=== PATIENT | female | born 1940 | race African-American/Black ===

== ENCOUNTER 2018-07-14 14:09 | Inpatient (IN) | payer MEDICARE, MEDICAID ==
[2018-07-14] MEDS ORDERED: ACETAMINOPHEN 325 MG TABLET PO ONE (16:11)
--- NOTE | 2018-07-14 16:15 | ER Document Report ---
ED Extremity Problem, Lower - General Chief Complaint: Knee Pain Stated Complaint: KNEE PAIN Time Seen by Provider: 07/14/18 16:01 Mode of Arrival: Wheelchair Information source: Patient, Relative - Daughter Notes: 78-year-old female presented to ED for complaint of left hip pain. Family states she was stating that her knee hurt but when I examined the patient only complained of her left hip hurting. TRAVEL OUTSIDE OF THE [place] IN LAST 30 DAYS: No - HPI Patient complains to provider of: Injury, Pain Location: Hip, Thigh Occurred: This morning Where: Home, Indoors Onset/Duration: Gradual Quality of pain: Sharp Severity: Moderate Pain Level: 4 Context: Fell Recent injury: Yes Associated symptoms: Painful ambulation Exacerbated by: Hanging down, Movement, Walking - Related Data Allergies/Adverse Reactions: latex Adverse Reaction (Verified 07/14/18 14:10) Past Medical History - General Information source: Patient - Social History Smoking Status: Former Smoker Cigarette use (# per day): No Chew tobacco use (# tins/day): No Smoking Education Provided: No Frequency of alcohol use: Occasional - Daughter states she had quite a bit to drink last night due to a family occasion usually drinks every couple months Drug Abuse: None Lives with: Family Family History: Reviewed & Not Pertinent Patient has suicidal ideation: No Patient has homicidal ideation: No - Past Medical History Cardiac Medical History: Reports: Hx Coronary Artery Disease, Hx Heart Attack, Hx Hypercholesterolemia, Hx Hypertension Pulmonary Medical History: Reports: Hx Bronchitis EENT Medical History: Reports: None Neurological Medical History: Reports: Other - Daughter states she has some dementia Endocrine Medical History: Reports: Hx Diabetes Mellitus Type 2 Renal/ Medical History: Reports: None Malignancy Medical History: Reports: Hx Lung Cancer - Left upper lobe GI Medical History: Reports: None Musculoskeletal Medical History: Reports Hx Arthritis, Reports Hx Musculoskeletal Trauma Skin Medical History: Reports None Psychiatric Medical History: Reports: Hx Dementia Traumatic Medical History: Reports: None Infectious Medical History: Reports: None Past Surgical History: Reports: Hx Carotid Endarterectomy - Left, Hx Orthopedic Surgery - Rotator cuff surgery to the right, Other - Immunizations Immunizations up to date: Yes Review of Systems - Review of Systems Constitutional: No symptoms reported EENT: No symptoms reported Cardiovascular: No symptoms reported Respiratory: No symptoms reported Gastrointestinal: No symptoms reported Genitourinary: No symptoms reported Female Genitourinary: No symptoms reported Musculoskeletal: Joint pain. denies: Joint swelling - Left hip pain, Muscle pain, Muscle stiffness, Neck pain Skin: No symptoms reported Hematologic/Lymphatic: No symptoms reported Neurological/Psychological: No symptoms reported -: Yes All other systems reviewed and negative Physical Exam - Vital signs Vitals: Temp Pulse Resp BP Pulse Ox 97.7 F 85 14 183/54 H 91 L 07/14/18 14:14 07/14/18 14:14 07/14/18 14:14 07/14/18 14:14 07/14/18 14:14 Interpretation: Normal - General General appearance: Appears well, Alert - HEENT Head: Normocephalic, Atraumatic Eyes: Normal Pupils: PERRL - Respiratory Respiratory status: No respiratory distress Chest status: Nontender Breath sounds: Normal Chest palpation: Normal - Cardiovascular Rhythm: Regular Heart sounds: Normal auscultation Murmur: No - Abdominal Inspection: Normal Distension: No distension Bowel sounds: Normal Tenderness: Nontender Organomegaly: No organomegaly - Back Back: Normal, Nontender - Extremities General upper extremity: Normal inspection, Nontender, Normal color, Normal ROM , Normal temperature General lower extremity: Normal inspection, Normal color, Normal temperature. No: Donald's sign Hip: Tender, Deformity - External rotation, Pain with ROM, Unable to bear weight. No: Abrasion, Dislocation, Ecchymosis, Instability, Laceration Thigh: Tender Knee: Normal, Nontender, Pain with ROM, Patellar tendon intact. No: Tender, Abrasion, Deformity, Dislocation, Drawer's test instability, Ecchymosis, Instability, Joint effusion, Laceration, Laxity with valgus stress, Laxity with varus stress, Popliteal fossa tender, Tender joint line, Unable to bear weight - Neurological Neuro grossly intact: Yes Cognition: Normal Orientation: AAOx4 Ariana Coma Scale Eye Opening: Spontaneous [place] Coma Scale Verbal: Oriented [place] Coma Scale Motor: Obeys Commands Ariana Coma Scale Total: 15 Speech: Normal Motor strength normal: LUE, RUE, LLE, RLE Sensory: Normal - Psychological Associated symptoms: Normal affect, Normal mood - Skin Skin Temperature: Warm Skin Moisture: Dry Skin Color: Normal Course - Re-evaluation Re-evalutation: 07/14/18 17:08 Consulted evaluated with the fractured left hip results of the x-ray. He stated the patient would need to be admitted to hospitalist as she has an extensive history. Patient is from [place] does not live in the area and does not have a local primary care doctor. Dr. Suzie mosley was consulted. He stated to call Dr. Field for this admission. Dr. Field was consulted he stated he would need all the labs EKG chest x-ray before he could admit the patient. Labs x-ray EKG and urine were ordered. - Vital Signs Vital signs: Temp Pulse Resp BP Pulse Ox 97.8 F 71 16 142/62 H 97 07/15/18 00:21 07/15/18 00:21 07/15/18 00:21 07/15/18 00:21 07/15/18 00:21 - Laboratory Result Diagrams: 07/14/18 17:30 07/14/18 17:30 Laboratory results interpreted by me: 07/14/18 07/14/18 17:30 17:30 WBC 15.7 H RBC 3.56 L Hgb 10.9 L Hct 32.4 L Seg Neutrophils % 87.3 H Lymphocytes % 8.0 L Absolute Neutrophils 13.7 H Sodium 134.5 L Chloride 92 L Creatinine 1.26 H Est GFR ( Amer) 50 L Est GFR (Non-Af Amer) 41 L Glucose 186 H AST 43 H Creatine Kinase 143 H Total Protein 9.2 H - Consults ariana Time consulted: 16:45 Reason for consultation: 07/14/18 17:12 left hip fracture from fall Consulted provider: other Suzie Flores consulted: 16:46 Reason for consultation: 07/14/18 17:13 Admission for a left hip fracture. He stated that I would need to consult Dr. Field who is the next person to accept an admission. Dr Field Time consulted: 16:47 Reason for consultation: 07/14/18 17:14 Admission for a left hip fracture. Dr. Ariana Morel stated he would consult on this patient. Dr. Field stated that he needs labs x-ray EKG and urine before he can accept this admission. Discharge - Discharge Clinical Impression: Closed left hip fracture Disposition: ADMITTED INPATIENT Admitting Provider: Hospitalist - tianna Unit Admitted: [facility]
--- NOTE | 2018-07-14 16:47 | RADIOLOGY REPORT (SQ) ---
EXAM DESCRIPTION: HIP LEFT AP/LATERAL COMPLETED DATE/TIME: 07/14/2018 4:32 pm REASON FOR STUDY: pain and fall COMPARISON: None. NUMBER OF VIEWS: Two views. TECHNIQUE: AP pelvis and additional frog-leg view of the left hip. LIMITATIONS: None. FINDINGS: MINERALIZATION: Osteopenia. LEFT HIP: No dislocation. Left femoral neck fracture with approximately 2.4 cm of impaction and 1 cm lateral displacement. . RIGHT HIP: No fracture or dislocation. No worrisome bone lesions. PUBIS AND ISCHIUM: No fracture. PELVIS: No fracture. SACRUM: No fracture or dislocation. No worrisome bone lesions. LOWER LUMBAR SPINE: No fracture or dislocation. No worrisome bone lesions. No significant disc disea se. SOFT TISSUES: No findings. OTHER: No other significant finding. IMPRESSION: Left femoral neck fracture with approximately 2.4 cm of impaction and 1 cm lateral dis placement. TECHNICAL DOCUMENTATION: JOB ID: [id number] [place]-72 2010 [employer]- All Rights Reserved Reading location - IP/workstation name: [email or web address]
[2018-07-14 18:03] LABS: ABSOLUTE BASOPHILS # (AUTO) 0.1 10^3/uL (0.0-0.2); ABSOLUTE LYMPHOCYTES (AUTO) 1.3 10^3/uL (0.5-4.7); ABSOLUTE MONOCYTES (AUTO) 0.6 10^3/uL (0.1-1.4); ABSOLUTE NEUT (AUTO) 13.7 10^3/uL (1.7-8.2); BASOPHILS % (AUTO) 0.6 % (0-2); HEMATOCRIT 32.4 % (36.0-47.0); HEMOGLOBIN 10.9 g/dL (12.0-15.5); MEAN CORPUSCULAR HEMOGLOBIN 30.7 pg (27.0-33.4); MEAN CORPUSCULAR HGB CONC 33.6 g/dL (32.0-36.0); MEAN CORPUSCULAR VOLUME 91 fl (80-97); MONOCYTES % (AUTO) 4.1 % (3-13); PLATELET COUNT 222 10^3/uL (150-450); RED BLOOD COUNT 3.56 10^6/uL (3.72-5.28); RED CELL DISTRIBUTION WIDTH 13.8 % (11.5-14.0); SEGMENTED NEUTROPHILS % (AUTO) 87.3 % (42-78); TOTAL CELLS COUNTED % (AUTO) 100 %; WHITE BLOOD COUNT 15.7 10^3/uL (4.0-10.5)
[2018-07-14] MEDS ORDERED: ONDANSETRON HCL INJ/PF 4 MG/2 ML SDV IV PRN (18:07)
[2018-07-14] MEDS ORDERED: IPRATROPIUM/ALBUTEROL 0.5-2.5 MG/3 ML AMPUL NEB PRN (18:07)
[2018-07-14 18:09] LABS: INTERNATIONAL RATION (INR) 0.95; PROTHROMBIN TIME 13.2 SEC (11.4-15.4)
[2018-07-14 18:10] LABS: PARTIAL THROMBOPLASTIN TIME 35.8 SEC (23.5-35.8)
[2018-07-14] MEDS ORDERED: VALSARTAN 80 MG TABLET PO ONE (18:19)
[2018-07-14] MEDS ORDERED: AMLODIPINE BESYLATE 10 MG TABLET PO ONE (18:19)
[2018-07-14] MEDS ORDERED: INSULIN DETEMIR 100 UNIT/ML 3 ML PEN SUBCUT ONE ×3 (18:22→23:30)
[2018-07-14] MEDS ORDERED: GLUCAGON,HUMAN RECOMB 1 MG INJ IM PRN (18:22)
[2018-07-14] MEDS ORDERED: DEXTROSE 50%-WATER 25 GM/50 ML DISP.SYRIN IV PRN ×2 (18:22)
[2018-07-14] MEDS ORDERED: DEXTROSE 40% GEL 15 GM TUBE PO PRN ×2 (18:22)
[2018-07-14] MEDS ORDERED: MORPHINE SULFATE 10 MG/ML INJ IV PRN (18:25)
[2018-07-14 18:26] LABS: ALANINE AMINOTRANSFERASE 21 U/L (9-52); ALBUMIN 4.7 g/dL (3.5-5.0); ALKALINE PHOSPHATASE 78 U/L (38-126); ANION GAP 17 (5-19); ASPARTATE AMINO TRANSFERASE 43 U/L (14-36); BILIRUBIN,DIRECT 0.4 mg/dL (0.0-0.4); BILIRUBIN,TOTAL 0.8 mg/dL (0.2-1.3); BLOOD UREA NITROGEN 20 mg/dL (7-20); CALCIUM 9.6 mg/dL (8.4-10.2); CARBON DIOXIDE 26 mmol/L (22-30); CHLORIDE 92 mmol/L (98-107); CREATINE KINASE 143 U/L (30-135); GLUCOSE 186 mg/dL (75-110); POTASSIUM 3.8 mmol/L (3.6-5.0); SODIUM 134.5 mmol/L (137-145); TOTAL PROTEIN 9.2 g/dL (6.3-8.2)
[2018-07-14 18:46] LABS: APPEARANCE,URINE CLEAR; BILIRUBIN,URINE NEGATIVE (NEGATIVE); COLOR,URINE STRAW; GLUCOSE, URINE 50 mg/dL (NEGATIVE); KETONES,URINE NEGATIVE (NEGATIVE); LEUKOCYTE ESTERASE,URINE NEGATIVE (NEGATIVE); NITRITE,URINE NEGATIVE (NEGATIVE); PROTEIN,URINE 100 mg/dL (NEGATIVE); URINE SPECIFIC GRAVITY 1.009; UROBILINOGEN,URINE NEGATIVE mg/dL (<2.0)
--- NOTE | 2018-07-14 18:48 | PDOC H&P ---
History of Present Illness Admission Date/PCP: 07/14/2018 Patient complains of: Pain left hip History of Present Illness: SOFY BRYANT is a 78 year old female visiting from [place]. Patient got up to use the bathroom became entangled in her blanket according to the daughter who is present in the room and fell to the floor. They found her with the blanket wrapped around her feet she was complaining of pain in her left hip. Patient presented to the emergency room where an x-ray revealed she has an intertrochanteric fracture of the left hip. Dr. Ariana Morel was contacted and requested hospitalist admit the patient and consult him due to her numerous chronic medical problems. Patient has a complicated medical history she has coronary artery disease with a prior myocardial infarction in 2012. She underwent bypass at that time. She is followed closely by her steel die engraver in [place]. In 2013 she was diagnosed with lung cancer and had a lobe resection on the right followed by chemotherapy. She has been disease free ever since. In September 2017 patient had a CVA and was found to have a left carotid stenosis. She apparently had old strokes identified at that time and underwent an endarterectomy in November 2017. In September she was also noted to have a brief episode of paroxysmal atrial fibrillation. She was started on Eliquis and had been on it for over 6 months. In May her steel die engraver did a groundwater monitoring technician found no episodes of paroxysms of atrial fibrillation and discontinue the Eliquis and placed her on aspirin 81 mg. Patient suffers from hypertension diabetes hyperlipidemia she did have a seizure in September 2017 which they felt was secondary to her stroke she has been on Keppra since and has had no more reported seizures. She has not had any chest pain or cardiac complaints either prior to or after the fall. Her hemoglobin is 10.7 her white count is elevated at 15 other laboratory studies are pending at the time of this dictation. Patient's EKG shows a sinus rhythm with nonspecific T wave abnormalities in the lateral precordial and limb leads there is however no prior for comparison. Patient will be admitted to a medical monitored bed Past Medical History Cardiac Medical History: Reports: Atrial Fibrillation, Coronary Artery Disease, Myocardial Infarction, Hyperlipidema, Hypertension Pulmonary Medical History: Reports: Bronchitis EENT Medical History: Reports: None Neurological Medical History: Reports: Seizures Endocrine Medical History: Reports: Diabetes Mellitus Type 2 Renal/ Medical History: Reports: None Malignancy Medical History: Reports: Lung Cancer - Left upper lobe resected 2013 GI Medical History: Reports: None Musculoskeltal Medical History: Reports: Arthritis Skin Medical History: Reports: None Psychiatric Medical History: Reports: Dementia Traumatic Medical History: Reports: None Infectious Medical History: Reports: None Past Surgical History Past Surgical History: Reports: Carotid Endarterectomy - Left November 2017, Coronary Artery Bypass Graft - 2012, Orthopedic Surgery - Rotator cuff surgery to the left, Other - Right lobe lung resection for cancer 2013 Social History Lives with: Family Smoking Status: Former Smoker Cigars Per Day: 1 Last Time Smoked: September 2017 Frequency of Alcohol Use: None Drugs: None - Advance Directive Resuscitation Status: Full Code Family History Family History: DM - Father, Other - Valve replacement mother Parental Family History Reviewed: Yes Children Family History Reviewed: Yes Sibling(s) Family History Reviewed.: Yes Medication/Allergy Allergies/Adverse Reactions: latex Adverse Reaction (Verified 07/14/18 14:10) Review of Systems All systems: reviewed and no additional remarkable complaints except as stated - The pain in the left hip from the fracture Physical Exam Vital Signs: Temp Pulse Resp BP Pulse Ox 97.7 F 85 14 183/54 H 91 L 07/14/18 14:14 07/14/18 14:14 07/14/18 14:14 07/14/18 14:14 07/14/18 14:14 Intake & Output 07/13/18 07/14/18 07/15/18 06:59 06:59 06:59 Weight 48.2 kg General appearance: PRESENT: no acute distress, well-developed, well-nourished Eye exam: PRESENT: conjunctiva pink, EOMI, PERRLA. ABSENT: scleral icterus Mouth exam: PRESENT: moist, tongue midline Throat exam: ABSENT: post pharyngeal erythema, tonsillar erythema, tonsillar exudate, tonsillogmegaly, other Neck exam: PRESENT: carotid bruit - Left greater than right. ABSENT: JVD, lymphadenopathy, thyromegaly Respiratory exam: PRESENT: clear to auscultation arnold. ABSENT: rales, rhonchi, wheezes Cardiovascular exam: PRESENT: RRR, systolic murmur - 2/6 systolic murmur. ABSENT: diastolic murmur, rubs Pulses: ABSENT: normal dorsalis pedis pul - 1/4 bilaterally GI/Abdominal exam: PRESENT: normal bowel sounds, soft. ABSENT: distended, guarding, mass, organolmegaly, rebound, tenderness Extremities exam: PRESENT: full ROM - All joints except left hip, tenderness - Left hip. ABSENT: calf tenderness, clubbing, pedal edema Musculoskeletal exam: ABSENT: normal inspection - Left hip foreshorten and externally rotated left leg neurovascularly intact Neurological exam: PRESENT: alert, awake, oriented to person, oriented to place , oriented to time, oriented to situation, CN II-XII grossly intact. ABSENT: motor sensory deficit Psychiatric exam: PRESENT: other - Mild dementia Skin exam: PRESENT: dry, intact, warm. ABSENT: cyanosis, rash Results Laboratory Results: 07/14/18 17:30 07/14/18 17:30 WBC 15.7 H RBC 3.56 L Hgb 10.9 L Hct 32.4 L MCV 91 MCH 30.7 MCHC 33.6 RDW 13.8 Plt Count 222 Seg Neutrophils % 87.3 H Lymphocytes % 8.0 L Monocytes % 4.1 Eosinophils % 0.0 Basophils % 0.6 Absolute Neutrophils 13.7 H Absolute Lymphocytes 1.3 Absolute Monocytes 0.6 Absolute Eosinophils 0.0 Absolute Basophils 0.1 Impressions: Hip X-Ray 07/14/18 16:09 IMPRESSION: Left femoral neck fracture with approximately 2.4 cm of impaction and 1 cm lateral displacement. Assessment & Plan - Diagnosis (1) Closed intertrochanteric fracture of left hip Is this a current diagnosis for this admission?: Yes Plan: Admit patient to a monitored bed consult Dr. Ariana Morel regimen of the hip fracture. Subcutaneous heparin for DVT prophylaxis. Serial CBCs to monitor hemoglobin (2) CAD (coronary artery disease) Is this a current diagnosis for this admission?: Yes Plan: Patient bypass in 2002. She is followed by steel die engraver on a regular basis and recently had a groundwater monitoring technician which showed no paroxysms of atrial fibrillation. Daughter reports her Eliquis was discontinued in May she is on aspirin therapy. We will obtain an echocardiogram to assess her role overall ejection fraction prior to her surgery and to assess the cardiac murmur. If abnormalities detected will consult cardiology for preoperative medical evaluation. (3) Paroxysmal atrial fibrillation Is this a current diagnosis for this admission?: Yes Plan: Currently in sinus rhythm. [id number] score of 8 with a 6.7% annual risk of stroke. Will not initiate anticoagulation as her steel die engraver is more familiar with her case has decided to stop it. If patient develops any paroxysms of atrial fibrillation while in the hospital here will reinitiate Elimanuela and have her follow-up with her steel die engraver. Will initiate beta-carlos with metoprolol 12.5 mg every 12 hours titrate if blood pressure tolerates. (4) Diabetes mellitus type 2 in obese Is this a current diagnosis for this admission?: Yes Plan: Continue patient's Levemir reduced dose to 30 mg due to hospital diet and place on sliding scale check hemoglobin A1c (5) Seizure disorder Is this a current diagnosis for this admission?: Yes Plan: Continue Keppra (6) Hypertension Is this a current diagnosis for this admission?: Yes Plan: Continue amlodipine change Benicar to valsartan 80 and add metoprolol as patient has a history of paroxysmal atrial fibrillation and prior myocardial infarction beta-carlos is indicated. Titrate the beta-carlos if needed for blood pressure control. (7) Hyperlipidemia Is this a current diagnosis for this admission?: Yes Plan: Check lipid panel in the a.m. continue Lipitor 40 mg daily. (8) Cardiac murmur Is this a current diagnosis for this admission?: Yes Plan: Consistent with aortic valve assess with echocardiography (9) History of lung cancer Is this a current diagnosis for this admission?: Yes Plan: Status post right lung resection and chemotherapy 2013 no further workup planned - Time Time Spent: 50 to 70 Minutes Anticipated discharge: SNF - Inpatient Certification Based on my medical assessment, after consideration of the patient's comorbidities, presenting symptoms, or acuity I expect that the services needed warrant INPATIENT care.: Yes I certify that my determination is in accordance with my understanding of Medicare's requirements for reasonable and necessary INPATIENT services [42 CFR 412.3e].: Yes Medical Necessity: Need Close Monitoring Due to Risk of Patient Decompensation, Risk of Complication if Not Cared For in Hospital
--- NOTE | 2018-07-14 19:03 | RADIOLOGY REPORT (SQ) ---
EXAM DESCRIPTION: CHEST SINGLE VIEW COMPLETED DATE/TIME: 07/14/2018 6:34 pm REASON FOR STUDY: preop, fractured hip COMPARISON: None. EXAM PARAMETERS: NUMBER OF VIEWS: One view. TECHNIQUE: Single frontal radiographic view of the chest acquired. RADIATION DOSE: NA LIMITATIONS: None. FINDINGS: LUNGS AND PLEURA: No pneumothorax. Small pleural effusion versus Chronic scarring in the right lung base. Emphysema and chronic interstitial changes. No consolidation. MEDIASTINUM AND HILAR STRUCTURES: Age-appropriate contour. HEART AND VASCULAR STRUCTURES: Heart normal in size. Normal vasculature. BONES: No acute findings. HARDWARE: CABG. OTHER: No other significant finding. IMPRESSION: No pneumothorax. Small pleural effusion versus Chronic scarring in the right lung base. Emphysema and chronic interstitial changes. No consolidation. TECHNICAL DOCUMENTATION: JOB ID: [id number] [place]-72 2010 [employer]- All Rights Reserved Reading location - IP/workstation name: [email or web address]
[2018-07-14] MEDS: METOPROLOL TARTRATE 25 MG TABLET PO SCH ×2 (20:29→22:44)
[2018-07-14] MEDS: RINGERS SOLUTION,LACTATED 1,000 ML IV PRN (20:41)
--- NOTE | 2018-07-14 20:43 | PDOC CONSULTATION ---
Consultation Consult Date: 07/14/18 Attending physician:: CONNOR ALBARRAN Consult reason:: Preop cardiovascular examination History of Present Illness Admission Date/PCP: 07/14/18 18:07 Patient complains of: Left hip pain History of Present Illness: SOFY BRYANT is a 78 year old female visiting from [place]. Patient got up to use the bathroom became entangled in her blanket according to the daughter who is present in the room and fell to the floor. They found her with the blanket wrapped around her feet she was complaining of pain in her left hip. Patient presented to the emergency room where an x-ray revealed she has an intertrochanteric fracture of the left hip. Dr. Ariana Morel was contacted and requested hospitalist admit the patient and consult him due to her numerous chronic medical problems. Patient has a complicated medical history she has coronary artery disease with a prior myocardial infarction in 2012. She underwent bypass in 2002. There is a history of stent placement in 2012. She is followed closely by her technical staff engineer in [place]. In 2013 she was diagnosed with lung cancer and had a lobe resection on the right followed by chemotherapy. She has been disease free ever since. In September 2017 patient had a CVA and was found to have a left carotid stenosis. She apparently had old strokes identified at that time and underwent an endarterectomy in November 2017. In September she was also noted to have a brief episode of paroxysmal atrial fibrillation. She was started on Eliquis and had been on it for over 6 months. In May her technical staff engineer did a court recording monitor found no episodes of paroxysms of atrial fibrillation and discontinue the Eliquis and placed her on aspirin 81 mg. Patient suffers from hypertension diabetes hyperlipidemia she did have a seizure in September 2017 which they felt was secondary to her stroke she has been on Keppra since and has had no more reported seizures. She has not had any chest pain or cardiac complaints either prior to or after the fall. Her hemoglobin is 10.7 her white count is elevated at 15 other laboratory studies are pending at the time of this dictation. Patient's EKG shows a sinus rhythm with nonspecific T wave abnormalities in the lateral precordial and limb leads there is however no prior for comparison. Patient will be admitted to a medical monitored bed. This history obtained by the hospitalist was reviewed with the patient, patient' s daughter and son who were at bedside. They did not add much except that patient is physically inactive but is able to take care of herself such as doing the dishes, going to the bathroom on her own, feeding and dressing herself. Past Medical History Cardiac Medical History: Reports: Atrial Fibrillation, Coronary Artery Disease, Myocardial Infarction, Hyperlipidema, Hypertension Pulmonary Medical History: Reports: Bronchitis EENT Medical History: Reports: None Neurological Medical History: Reports: Seizures, Other - Daughter states she has some dementia Endocrine Medical History: Reports: Diabetes Mellitus Type 2 Renal/ Medical History: Reports: None Malignancy Medical History: Reports: Lung Cancer - Left upper lobe resected 2013 GI Medical History: Reports: None Musculoskeltal Medical History: Reports: Arthritis Skin Medical History: Reports: None Psychiatric Medical History: Reports: Dementia Traumatic Medical History: Reports: None Infectious Medical History: Reports: None Past Surgical History Past Surgical History: Reports: Carotid Endarterectomy - Left November 2017, Coronary Artery Bypass Graft - 2012, Orthopedic Surgery - Rotator cuff surgery to the left, Other - Right lobe lung resection for cancer 2013 Social History Information Source: Patient Lives with: Family Smoking Status: Former Smoker Cigars Per Day: 1 Last Time Smoked: September 2017 Frequency of Alcohol Use: None Drugs: None - Advance Directive Resuscitation Status: Full Code Surrogate healthcare decision maker:: Patient daughter is the surrogate decision-maker Family History Family History: DM - Father, Other - Valve replacement mother Parental Family History Reviewed: Yes Children Family History Reviewed: Yes Sibling(s) Family History Reviewed.: Yes Medication/Allergy Home Medications: Amlodipine Besylate [Norvasc 10 mg Tablet] 10 mg PO DAILY 07/14/18 Aspirin [Aspirin 81 mg Chewable Tablet] 81 mg PO DAILY 07/14/18 Atorvastatin Calcium 40 mg PO QHS 07/14/18 Insulin Detemir [Levemir Flextouch] 36 units SQ DAILY 07/14/18 Levetiracetam [Keppra 500 mg Tablet] 500 mg PO Q12 07/14/18 Mirtazapine [Mirtazapine] 15 mg PO QHS 07/14/18 Olmesartan/Hydrochlorothiazide [Olmesartan-Hctz 40-25 mg Tab] 1 each PO DAILY Apixaban [Eliquis 2.5 mg Tablet] 2.5 mg PO BID 07/15/18 Allergies/Adverse Reactions: latex Adverse Reaction (Verified 07/14/18 14:10) Review of Systems Review of Systems: Please see history of present illness and past medical history as wall. Constitutional: No fever or chills reported. Head : No recent chronic headaches, recent head injury. Eyes: No recent eye pain, diplopia, redness, discharge, acute visual changes. Ears: No recent chronic ear pain, acute hearing loss, ear discharge. Oral cavity: No recent ulcerations, bleeding, oral cavity discomfort. Neck: No recent acute neck pain reported. Hematologic: No recent easy bruising or bleeding. Lymphatic: No recent lymph node enlargement reported. Cardiovascular system review: See history of present illness. Respiratory system review: No hemoptysis or blood clots in the lungs reported. Mild Shortness of breath on exertion Gastrointestinal system review: Negative for any recent acute hematemesis, melena. Genitourinary system review: No recent acute or chronic hematuria, flank pain, UTI etc. reported. Skin system review: Negative for any recent abnormal bruising, no rash, no pruritus reported. Neurologic: History of prior stroke and seizures. Psychologic: No history of major psychosis or major depression reported. Musculoskeletal: Minor aches and pains reported. No acute joint swelling reported. Endocrine: No recent polyuria, polydipsia, recent heat or cold intolerance. Physical Exam Vital Signs: Temp Pulse Resp BP Pulse Ox 97.7 F 85 14 183/54 H 91 L 07/14/18 14:14 07/14/18 14:14 07/14/18 14:14 07/14/18 14:14 07/14/18 14:14 Exam: GENERAL: well-nourished and in no acute distress. Alert and oriented x3 HEAD: Atraumatic, normocephalic. EYES: Pupils equal round and reactive to light, extraocular movements intact, sclera anicteric, conjunctiva are normal. ENT: TMs normal, nares patent, oropharynx clear without exudates. Moist mucous membranes. No oral ulcerations or bleeding gums noted NECK: supple without lymphadenopathy. Trachea is central. No cervical or axillary lymphadenopathy noted. Carotids are 2+, JVD WNL LUNGS: Respiration seems nonlabored, no significant accessory muscle action noted. Breath sounds clear to auscultation bilaterally and equal noted. No wheezes rales or rhonchi noted. No significant dullness noted on percussion. CHEST: Palpation of the chest wall shows no significant chest wall tenderness. HEART: Emery CAMERA CONTROL OPERATOR, No PSH, 1/6 SELWYN aortic area, 1/6 gaviria systolic murmur mitral area, no rubs, no gallops. ABDOMEN: Soft, no significant tenderness appreciated, normoactive bowel sounds. No guarding, no rebound. No rigidity noted . No masses appreciated. EXTREMITIES: Pedal pulses are 1-2+, no calf tenderness noted. No clubbing or cyanosis. negative pedal edema noted NEUROLOGICAL: Focused neurological exam showed no significant neurologic deficit. Normal speech, no focal weakness appreciated. PSYCH: Normal mood, normal affect. Judgment and insight within normal limits. SKIN: No significant ecchymosis, skin is noted to be warm. MUSCULOSKELETAL EXAM: Findings of left hip fracture noted. Results Laboratory Results: 07/14/18 18:25 Urine Color STRAW Urine Appearance CLEAR Urine pH 5.0 Ur Specific [place] 1.009 Urine Protein 100 H Urine Glucose (UA) 50 H Urine Ketones NEGATIVE Urine Blood SMALL H Urine Nitrite NEGATIVE Ur Leukocyte Esterase NEGATIVE Urine WBC (Auto) 1 Urine RBC (Auto) 1 EKG Comments: Shows sinus rhythm, no acute ST-T wave changes are noted Impressions: Hip X-Ray 07/14/18 16:09 IMPRESSION: Left femoral neck fracture with approximately 2.4 cm of impaction and 1 cm lateral displacement. Chest X-Ray 07/14/18 17:07 IMPRESSION: No pneumothorax. Small pleural effusion versus Chronic scarring in the right lung base. Emphysema and chronic interstitial changes. No consolidation. Assessment & Plan - Diagnosis (1) Preoperative cardiovascular examination Is this a current diagnosis for this admission?: Yes (2) CAD (coronary artery disease) Qualifiers: Coronary Disease-Associated Artery/Lesion type: unspecified vessel or lesion type [place] vs. transplanted heart: [place] heart Associated angina: angina presence unspecified Qualified Code(s): I25.10 - Atherosclerotic heart disease of [place] coronary artery without angina pectoris Is this a current diagnosis for this admission?: Yes (3) Diabetes Qualifiers: Diabetes mellitus type: type 2 Diabetes mellitus termite exterminator insulin use: unspecified termite exterminator insulin use status Diabetes mellitus complication status : with unspecified complications Qualified Code(s): E11.8 - Type 2 diabetes mellitus with unspecified complications Is this a current diagnosis for this admission?: Yes (4) Closed intertrochanteric fracture of left hip Qualifiers: Encounter type: initial encounter Is this a current diagnosis for this admission?: Yes (5) Hyperlipidemia Qualifiers: Hyperlipidemia type: unspecified Qualified Code(s): E78.5 - Hyperlipidemia , unspecified Is this a current diagnosis for this admission?: Yes (6) Hypertension Qualifiers: Hypertension type: essential hypertension Qualified Code(s): I10 - Essential (primary) hypertension Is this a current diagnosis for this admission?: Yes (7) Paroxysmal atrial fibrillation Is this a current diagnosis for this admission?: Yes (8) Personal history of cerebrovascular accident with current residual effects Is this a current diagnosis for this admission?: Yes (9) Hx of carotid artery stenosis Is this a current diagnosis for this admission?: Yes - Notes Notes: Preop cardiovascular examination: Patient presents with an above average risk but not in the prohibitive range. Patient cleared for surgery. Will get a 2D echocardiogram as this will help in any perioperative cardiovascular risk assessment and management. CAD: Clinically stable but patient not very physically active. Patient CABG was in 2002 therefore 17 years old and therefore is likely to have progression of graft and [place] disease. No ischemia evaluation planned. Diabetes: Recommend good management but avoid any hypo-or hyperglycemia. Hypertension: Currently is stable. Blood pressure goal of 150/90 will be acceptable. Hyperlipidemia: Continue hypotensive statin therapy. Personal history of cerebrovascular accident: Patient status post carotid endarterectomy. Currently stable. History of carotid artery stenosis: Status post carotid endarterectomy. Currently stable. Paroxysmal atrial fibrillation: Currently not on anticoagulation. She was taken off anticoagulation by her primary care technical staff engineer in [facility]. Will leave decision of any chronic anticoagulation with him since patient is just visiting here. - Time Time Spent: 30 to 50 Minutes - CODE STATUS was discussed, patient remains full code. Surrogate decision-maker unchanged. Multiple medical problems were addressed. More than 50% of the time spent coordinating care, discussing management plans with involved caregivers. Management plans discussed with involved personnels. Medical decision making was of moderate to high complexity , patient's has multiple comorbidities. Medications reviewed and adjusted accordingly: Yes
--- NOTE | 2018-07-14 20:51 | EKG REPORT ---
SEVERITY:- ABNORMAL ECG - SINUS RHYTHM ABNORMAL T, CONSIDER ISCHEMIA, LATERAL LEADS : Confirmed by: Loreto Watkins MD 14-Jul-2018 20:50:32
[2018-07-14] MEDS: HEPARIN SOD (PORCINE) 5,000 UNIT/ML 1 ML SYRINGE SUBCUT SCH (22:45)
[2018-07-14] MEDS ORDERED: LEVETIRACETAM 500 MG TABLET PO ONE (23:15)
[2018-07-14] MEDS: LEVETIRACETAM 500 MG TABLET PO SCH (23:18)
[2018-07-14] MEDS: INSULIN REG, HUMAN 100 UNIT/ML 3 ML VIAL (PYX) SUBCUT PRN (23:18)
[2018-07-15] MEDS: MAGNESIUM SULFATE/D5W 1 GM/100 ML RTUPB IV SCH ×2 (03:02→04:07)
[2018-07-15 03:52] LABS: ANION GAP 9 (5-19); BLOOD UREA NITROGEN 22 mg/dL (7-20); CALCIUM 9.3 mg/dL (8.4-10.2); CARBON DIOXIDE 30 mmol/L (22-30); CHLORIDE 97 mmol/L (98-107); GLUCOSE 91 mg/dL (75-110); POTASSIUM 3.9 mmol/L (3.6-5.0)
[2018-07-15] MEDS: HEPARIN SOD (PORCINE) 5,000 UNIT/ML 1 ML SYRINGE SUBCUT SCH ×3 (05:44→21:50)
[2018-07-15] MEDS: LANSOPRAZOLE 30 MG TAB.RAP.DR PO SCH (05:47)
[2018-07-15 06:24] LABS: ABSOLUTE EOSINOPHILS # (AUTO) 0.1 10^3/uL (0.0-0.6); ABSOLUTE LYMPHOCYTES (AUTO) 1.6 10^3/uL (0.5-4.7); ABSOLUTE MONOCYTES (AUTO) 0.6 10^3/uL (0.1-1.4); BASOPHILS % (AUTO) 0.3 % (0-2); EOSINOPHILS % (AUTO) 0.8 % (0-6); HEMATOCRIT 30.6 % (36.0-47.0); HEMOGLOBIN 10.3 g/dL (12.0-15.5); LYMPHOCYTES % (AUTO) 19.6 % (13-45); MEAN CORPUSCULAR HEMOGLOBIN 30.3 pg (27.0-33.4); MEAN CORPUSCULAR HGB CONC 33.5 g/dL (32.0-36.0); MEAN CORPUSCULAR VOLUME 90 fl (80-97); MONOCYTES % (AUTO) 7.6 % (3-13); PLATELET COUNT 169 10^3/uL (150-450); RED BLOOD COUNT 3.39 10^6/uL (3.72-5.28); RED CELL DISTRIBUTION WIDTH 13.7 % (11.5-14.0); SEGMENTED NEUTROPHILS % (AUTO) 71.7 % (42-78); TOTAL CELLS COUNTED % (AUTO) 100 %; WHITE BLOOD COUNT 8.4 10^3/uL (4.0-10.5)
[2018-07-15 06:43] LABS: ANION GAP 11 (5-19); BLOOD UREA NITROGEN 20 mg/dL (7-20); CALCIUM 9.5 mg/dL (8.4-10.2); CARBON DIOXIDE 27 mmol/L (22-30); CHLORIDE 97 mmol/L (98-107); CHOLESTEROL 129.01 mg/dL (0-200); GLUCOSE 63 mg/dL (75-110); POTASSIUM 3.8 mmol/L (3.6-5.0); SODIUM 135.2 mmol/L (137-145); TRIGLYCERIDES 65 mg/dL (<150)
[2018-07-15 06:55] LABS: DIRECT LDL < 30 mg/dL (<100)
--- NOTE | 2018-07-15 08:52 | EKG REPORT ---
SEVERITY:- ABNORMAL ECG - SINUS OR ECTOPIC ATRIAL RHYTHM VENTRICULAR PREMATURE COMPLEX SINUS PAUSE/ARREST WITH ATRIAL ESCAPE FIRST DEGREE AV BLOCK PROMINENT P WAVES, NONDIAGNOSTIC NONSPECIFIC T ABNORMALITIES, LATERAL LEADS PROLONGED QT INTERVAL : Confirmed by: Loreto Watkins MD 15-Jul-2018 08:51:44
--- NOTE | 2018-07-15 08:52 | EKG REPORT ---
SEVERITY:- ABNORMAL ECG - SINUS OR ECTOPIC ATRIAL RHYTHM FIRST DEGREE AV BLOCK ABNORMAL T, CONSIDER ISCHEMIA, LATERAL LEADS : Confirmed by: Loreto Watkins MD 15-Jul-2018 08:51:39
[2018-07-15] MEDS: ASPIRIN 81 MG TABLET, CHEWABLE PO SCH (09:30)
--- NOTE | 2018-07-15 10:51 | PDOC PROGRESS REPORT ---
Subjective Progress Note for:: 07/15/18 Subjective:: SOFY BRYANT is a 78 year old female visiting from [place]. Patient got up to use the bathroom became entangled in her blanket according to the daughter who is present in the room and fell to the floor. They found her with the blanket wrapped around her feet she was complaining of pain in her left hip. Patient presented to the emergency room where an x-ray revealed she has an intertrochanteric fracture of the left hip. Dr. Ariana Morel was contacted and requested hospitalist admit the patient and consult him due to her numerous chronic medical problems. Patient has a complicated medical history she has coronary artery disease with a prior myocardial infarction in 2012. She underwent bypass at that time. She is followed closely by her acoustics teacher in [place]. In 2013 she was diagnosed with lung cancer and had a lobe resection on the right followed by chemotherapy. She has been disease free ever since. In September 2017 patient had a CVA and was found to have a left carotid stenosis. She apparently had old strokes identified at that time and underwent an endarterectomy in November 2017. In September she was also noted to have a brief episode of paroxysmal atrial fibrillation. She was started on Eliquis and had been on it for over 6 months. In May her acoustics teacher did a service unit operator oil well found no episodes of paroxysms of atrial fibrillation and discontinue the Eliquis and placed her on aspirin 81 mg. Patient suffers from hypertension diabetes hyperlipidemia she did have a seizure in September 2017 which they felt was secondary to her stroke she has been on Keppra since and has had no more reported seizures. She has not had any chest pain or cardiac complaints either prior to or after the fall. Her hemoglobin is 10.7 her white count is elevated at 15 other laboratory studies are pending at the time of this dictation. Patient's EKG shows a sinus rhythm with nonspecific T wave abnormalities in the lateral precordial and limb leads there is however no prior for comparison. Patient will be admitted to a medical monitored bed Patient stable. Patient did develop a second-degree heart block type I last evening and the metoprolol was discontinued. Likely why patient is not on beta- blockade given her medical history. Troponins remain mildly elevated. Repeat EKG shows stability of the downsloping ST segments in the lateral leads. Echocardiogram is pending. Cardiology consultation appreciated. Patient has no chest pain complaints was mildly hypoglycemic on a reduced dose of her Levemir without symptoms. Hemoglobin A1c 7.2 indicating excellent glycemic control in the outpatient setting. Lipid panel appears to be at goal and the leukocytosis is now normalized and was likely due to stress. Reason For Visit: LEFT HIP FRACTURE Physical Exam Vital Signs: Temp Pulse Resp BP Pulse Ox 99.3 F 84 20 165/46 H 94 07/15/18 07:35 07/15/18 07:35 07/15/18 07:35 07/15/18 07:35 07/15/18 07:35 Intake & Output 07/14/18 07/15/18 07/16/18 06:59 06:59 06:59 Intake Total 265 Output Total 1650 Balance -1385 Weight 51 kg General appearance: PRESENT: no acute distress, well-developed, well-nourished Neck exam: PRESENT: carotid bruit - Faint bilateral. ABSENT: JVD, lymphadenopathy, thyromegaly Respiratory exam: PRESENT: clear to auscultation [place]. ABSENT: rales, rhonchi, wheezes Cardiovascular exam: PRESENT: RRR, systolic murmur - 2/6 systolic. ABSENT: diastolic murmur, rubs Pulses: ABSENT: +2 pedal pulses bilateral - 0-1/4 bilaterally lower extremities neurovascularly intact GI/Abdominal exam: PRESENT: normal bowel sounds, soft. ABSENT: distended, guarding, mass, organolmegaly, rebound, tenderness Extremities exam: PRESENT: tenderness - Left hip due to fracture. ABSENT: pedal edema Neurological exam: PRESENT: alert, awake, oriented to person, oriented to place , oriented to time, oriented to situation, CN II-XII grossly intact. ABSENT: motor sensory deficit Results Laboratory Results: 07/15/18 05:59 07/15/18 05:59 07/14/18 07/15/18 07/15/18 18:25 02:25 02:25 WBC RBC Hgb Hct MCV MCH MCHC RDW Plt Count Seg Neutrophils % Lymphocytes % Monocytes % Eosinophils % Basophils % Absolute Neutrophils Absolute Lymphocytes Absolute Monocytes Absolute Eosinophils Absolute Basophils Sodium Cancelled 136.0 L Potassium Cancelled 3.9 Chloride Cancelled 97 L Carbon Dioxide Cancelled 30 Anion Gap Cancelled 9 BUN Cancelled 22 H Creatinine Cancelled 1.29 H Est GFR ( Amer) Cancelled 49 L Est GFR (Non-Af Amer) Cancelled 40 L Glucose Cancelled 91 Calcium Cancelled 9.3 Phosphorus Magnesium Triglycerides Cholesterol LDL Cholesterol Direct VLDL Cholesterol HDL Cholesterol TSH Urine Color STRAW Urine Appearance CLEAR Urine pH 5.0 Ur Specific [place] 1.009 Urine Protein 100 H Urine Glucose (UA) 50 H Urine Ketones NEGATIVE Urine Blood SMALL H Urine Nitrite NEGATIVE Ur Leukocyte Esterase NEGATIVE Urine WBC (Auto) 1 Urine RBC (Auto) 1 07/15/18 07/15/18 07/15/18 05:59 05:59 05:59 WBC 8.4 RBC 3.39 L Hgb 10.3 L Hct 30.6 L MCV 90 MCH 30.3 MCHC 33.5 RDW 13.7 Plt Count 169 Seg Neutrophils % 71.7 Lymphocytes % 19.6 Monocytes % 7.6 Eosinophils % 0.8 Basophils % 0.3 Absolute Neutrophils 6.0 Absolute Lymphocytes 1.6 Absolute Monocytes 0.6 Absolute Eosinophils 0.1 Absolute Basophils 0.0 Sodium 135.2 L Potassium 3.8 Chloride 97 L Carbon Dioxide 27 Anion Gap 11 BUN 20 Creatinine 1.21 Est GFR ( Amer) 52 L Est GFR (Non-Af Amer) 43 L Glucose 63 L Calcium 9.5 Phosphorus 4.0 Magnesium 2.6 H Triglycerides 65 Cholesterol 129.01 LDL Cholesterol Direct < 30 VLDL Cholesterol 13.0 HDL Cholesterol 67 TSH 1.09 Urine Color Urine Appearance Urine pH Ur Specific [place] Urine Protein Urine Glucose (UA) Urine Ketones Urine Blood Urine Nitrite Ur Leukocyte Esterase Urine WBC (Auto) Urine RBC (Auto) 07/14/18 07/15/18 07/15/18 21:45 02:25 02:25 Creatine Kinase 108 CK-MB (CK-2) Troponin I 0.076 0.096 07/15/18 07/15/18 02:25 05:59 Creatine Kinase CK-MB (CK-2) 1.39 Troponin I Cancelled 0.097 Impressions: Hip X-Ray 07/14/18 16:09 IMPRESSION: Left femoral neck fracture with approximately 2.4 cm of impaction and 1 cm lateral displacement. Chest X-Ray 07/14/18 17:07 IMPRESSION: No pneumothorax. Small pleural effusion versus Chronic scarring in the right lung base. Emphysema and chronic interstitial changes. No consolidation. Assessment & Plan - Diagnosis (1) Closed intertrochanteric fracture of left hip Qualifiers: Encounter type: initial encounter Is this a current diagnosis for this admission?: Yes Plan: Admit patient to a monitored bed consult Dr. Ariana Morel regimen of the hip fracture. Subcutaneous heparin for DVT prophylaxis. Patient's cardiovascular risk by Endy's criteria is greater than 11% cardiology has been consulted (2) Elevated troponin Is this a current diagnosis for this admission?: Yes Plan: Unclear significance. Troponins trending to continue will discuss with Dr. Richard significance. (3) CAD (coronary artery disease) Qualifiers: Coronary Disease-Associated Artery/Lesion type: unspecified vessel or lesion type [place] vs. transplanted heart: [place] heart Associated angina: angina presence unspecified Qualified Code(s): I25.10 - Atherosclerotic heart disease of [place] coronary artery without angina pectoris Is this a current diagnosis for this admission?: Yes Plan: Patient bypass in 2002. She is followed by acoustics teacher on a regular basis and recently had a service unit operator oil well which showed no paroxysms of atrial fibrillation. Patient did have development of Wenke Bach with beta-blockade which has been discontinued. Echocardiogram pending. Troponin mild increase from 0.04-0.09 but overall appears flat. EKG remained stable patient has no complaints. Await cardiology evaluation prior to surgery. No ischemic workup planned at this time (4) Paroxysmal atrial fibrillation Is this a current diagnosis for this admission?: Yes Plan: By history. Patient did develop Wenke Bach with beta blockade which may be why patient is not on a rate controlling medication. Eliquis discontinued in May continue to monitor if patient develops atrial fibrillation will reinitiate anticoagulation postoperatively. (5) Diabetes mellitus type 2 in obese Is this a current diagnosis for this admission?: Yes Plan: Hemoglobin A1c 7.2 reduce Levemir to 22 units and give 10 units the evening prior to surgery when planned. (6) Seizure disorder Is this a current diagnosis for this admission?: Yes Plan: Continue Keppra (7) Hypertension Qualifiers: Hypertension type: essential hypertension Qualified Code(s): I10 - Essential (primary) hypertension Is this a current diagnosis for this admission?: Yes Plan: Mildly elevated. Patient on valsartan 80 rather than Benicar 40. Will titrate valsartan to 160 if blood pressure continues to remain high. Continue amlodipine at 10 mg. (8) Hyperlipidemia Qualifiers: Hyperlipidemia type: unspecified Qualified Code(s): E78.5 - Hyperlipidemia , unspecified Is this a current diagnosis for this admission?: Yes Plan: At goal continue statin (9) Cardiac murmur Is this a current diagnosis for this admission?: Yes Plan: Consistent with aortic valve assess with echocardiography (10) History of lung cancer Is this a current diagnosis for this admission?: Yes Plan: Status post right lung resection and chemotherapy 2013 no further workup planned - Time Time Spent with patient: 35 or more minutes Anticipated discharge: SNF
[2018-07-15] MEDS: LEVETIRACETAM 500 MG TABLET PO SCH ×2 (10:52→21:51)
[2018-07-15] MEDS: MIRTAZAPINE 15 MG TABLET PO SCH (10:52)
--- NOTE | 2018-07-15 12:21 | PDOC CONSULTATION ---
Consultation Consult Date: 07/15/18 Consult reason:: Left hip fracture History of Present Illness Admission Date/PCP: 07/14/18 18:07 Patient complains of: Left hip pain History of Present Illness: SOFY BRYANT is a 78 year old female from [place] who try to get out of bed and tripped over her sheets and fell onto her left side. Immediately had left hip pain and inability to weight-bear and ambulate. Patient was brought to the hospital by EMS where she was evaluated and x-rayed and showed she had a displaced left hip fracture. She has significant medical comorbidities and the patient was admitted to medicine. Denies any numbness or tingling or paresthesias or any loss of consciousness. Complains just of acute left hip pain with motion but at rest has been minimal pain. Describes the pain to be in the groin and anterior hip. No previous orthopedic surgeries or injuries to the left hip. Past Medical History Cardiac Medical History: Reports: Atrial Fibrillation, Coronary Artery Disease, Myocardial Infarction, Hyperlipidema, Hypertension Pulmonary Medical History: Reports: Bronchitis EENT Medical History: Reports: None Neurological Medical History: Reports: Seizures, Other - Daughter states she has some dementia Endocrine Medical History: Reports: Diabetes Mellitus Type 2 Renal/ Medical History: Reports: None Malignancy Medical History: Reports: Lung Cancer - Left upper lobe GI Medical History: Reports: None Musculoskeltal Medical History: Reports: Arthritis Skin Medical History: Reports: None Psychiatric Medical History: Reports: Dementia Traumatic Medical History: Reports: None Infectious Medical History: Reports: None Past Surgical History Past Surgical History: Reports: Carotid Endarterectomy - Left, Coronary Artery Bypass Graft - 2013, Orthopedic Surgery - Rotator cuff surgery to the right, Other Social History Lives with: Family Smoking Status: Former Smoker Cigars Per Day: 1 Last Time Smoked: Sep 2017 Frequency of Alcohol Use: Occasional Hx Recreational Drug Use: No Drugs: None Hx Prescription Drug Abuse: No - Advance Directive Resuscitation Status: Full Code Family History Family History: Reviewed & Not Pertinent Parental Family History Reviewed: No Children Family History Reviewed: No Sibling(s) Family History Reviewed.: No Medication/Allergy Home Medications: Amlodipine Besylate [Norvasc 10 mg Tablet] 10 mg PO DAILY 07/14/18 Aspirin [Aspirin 81 mg Chewable Tablet] 81 mg PO DAILY 07/14/18 Atorvastatin Calcium 40 mg PO QHS 07/14/18 Insulin Detemir [Levemir Flextouch] 36 units SQ DAILY 07/14/18 Levetiracetam [Keppra 500 mg Tablet] 500 mg PO Q12 07/14/18 Mirtazapine [Mirtazapine] 15 mg PO QHS 07/14/18 Olmesartan/Hydrochlorothiazide [Olmesartan-Hctz 40-25 mg Tab] 1 each PO DAILY Apixaban [Eliquis 2.5 mg Tablet] 2.5 mg PO BID 07/15/18 Allergies/Adverse Reactions: latex Adverse Reaction (Verified 07/14/18 14:10) Review of Systems Review of Systems: Constitutional: [PRESENT: as per HPI. ABSENT: chills, fever(s), headache(s), weight gain, weight loss] Eyes: [ABSENT: visual disturbances] Ears: [ABSENT: hearing changes] Cardiovascular: [ABSENT: chest pain, dyspnea on exertion, edema, orthropnea, palpitations] Respiratory: [ABSENT: cough, hemoptysis] Gastrointestinal: [ABSENT: abdominal pain, constipation, diarrhea, hematemesis, hematochezia, nausea, vomiting] Genitourinary: [ABSENT: dysuria, hematuria] Musculoskeletal: As per HPI Integumentary: [ABSENT: rash, wounds] Neurological: [ABSENT: abnormal gait, abnormal speech, confusion, dizziness, focal weakness, syncope] Psychiatric: [ABSENT: anxiety, depression, homicidal ideation, suicidal ideation ] Endocrine: [ABSENT: cold intolerance, heat intolerance, menstrual abnormalities , polydipsia, polyuria] Hematologic/Lymphatic: [ABSENT: easy bleeding, easy bruising, lymphadenopathy] Physical Exam Vital Signs: Temp Pulse Resp BP Pulse Ox 37.4 C 84 20 165/46 H 94 07/15/18 07:35 07/15/18 07:35 07/15/18 07:35 07/15/18 07:35 07/15/18 07:35 Intake & Output 07/14/18 07/15/18 07/16/18 06:59 06:59 06:59 Intake Total 265 Output Total 1650 Balance -1385 Weight 51 kg General appearance: PRESENT: no acute distress, well-nourished Eye exam: PRESENT: EOMI, other - Round pupils and symmetric. ABSENT: nystagmus Ear exam: PRESENT: normal external ear exam Mouth exam: PRESENT: neck supple Neck exam: PRESENT: full ROM. ABSENT: lymphadenopathy, tenderness, thyromegaly Respiratory exam: PRESENT: symmetrical, unlabored. ABSENT: accessory muscle use , tachypnea Cardiovascular exam: PRESENT: RRR Pulses: PRESENT: normal dorsalis pedis pul Vascular exam: PRESENT: normal capillary refill GI/Abdominal exam: PRESENT: soft. ABSENT: mass, organolmegaly, tenderness Neurological exam: PRESENT: alert, awake, oriented to person, oriented to place , oriented to time, oriented to situation Psychiatric exam: PRESENT: appropriate affect, normal mood Skin exam: PRESENT: intact. ABSENT: erythema, skin tears Adult Front & Back Image: 1 - Left lower extremity is bit short and externally rotated. Good capillary refills and good dorsalis pedis pulse 5 out of 5 motor distally with ankle flexion dorsiflexion and extension flexion of her digits. She has tenderness to palpation over the left groin. Discomfort and pain with logroll motion or flexion of the hip. Results Laboratory Results: 07/15/18 05:59 07/15/18 05:59 07/14/18 07/15/18 07/15/18 18:25 02:25 02:25 WBC RBC Hgb Hct MCV MCH MCHC RDW Plt Count Seg Neutrophils % Lymphocytes % Monocytes % Eosinophils % Basophils % Absolute Neutrophils Absolute Lymphocytes Absolute Monocytes Absolute Eosinophils Absolute Basophils Sodium Cancelled 136.0 L Potassium Cancelled 3.9 Chloride Cancelled 97 L Carbon Dioxide Cancelled 30 Anion Gap Cancelled 9 BUN Cancelled 22 H Creatinine Cancelled 1.29 H Est GFR ( Amer) Cancelled 49 L Est GFR (Non-Af Amer) Cancelled 40 L Glucose Cancelled 91 Calcium Cancelled 9.3 Phosphorus Magnesium Triglycerides Cholesterol LDL Cholesterol Direct VLDL Cholesterol HDL Cholesterol TSH Urine Color STRAW Urine Appearance CLEAR Urine pH 5.0 Ur Specific [place] 1.009 Urine Protein 100 H Urine Glucose (UA) 50 H Urine Ketones NEGATIVE Urine Blood SMALL H Urine Nitrite NEGATIVE Ur Leukocyte Esterase NEGATIVE Urine WBC (Auto) 1 Urine RBC (Auto) 1 07/15/18 07/15/18 07/15/18 05:59 05:59 05:59 WBC 8.4 RBC 3.39 L Hgb 10.3 L Hct 30.6 L MCV 90 MCH 30.3 MCHC 33.5 RDW 13.7 Plt Count 169 Seg Neutrophils % 71.7 Lymphocytes % 19.6 Monocytes % 7.6 Eosinophils % 0.8 Basophils % 0.3 Absolute Neutrophils 6.0 Absolute Lymphocytes 1.6 Absolute Monocytes 0.6 Absolute Eosinophils 0.1 Absolute Basophils 0.0 Sodium 135.2 L Potassium 3.8 Chloride 97 L Carbon Dioxide 27 Anion Gap 11 BUN 20 Creatinine 1.21 Est GFR ( Amer) 52 L Est GFR (Non-Af Amer) 43 L Glucose 63 L Calcium 9.5 Phosphorus 4.0 Magnesium 2.6 H Triglycerides 65 Cholesterol 129.01 LDL Cholesterol Direct < 30 VLDL Cholesterol 13.0 HDL Cholesterol 67 TSH 1.09 Urine Color Urine Appearance Urine pH Ur Specific [place] Urine Protein Urine Glucose (UA) Urine Ketones Urine Blood Urine Nitrite Ur Leukocyte Esterase Urine WBC (Auto) Urine RBC (Auto) 07/14/18 07/15/18 07/15/18 21:45 02:25 02:25 Creatine Kinase 108 CK-MB (CK-2) Troponin I 0.076 0.096 07/15/18 07/15/18 02:25 05:59 Creatine Kinase CK-MB (CK-2) 1.39 Troponin I Cancelled 0.097 Impressions: Hip X-Ray 07/14/18 16:09 IMPRESSION: Left femoral neck fracture with approximately 2.4 cm of impaction and 1 cm lateral displacement. Chest X-Ray 07/14/18 17:07 IMPRESSION: No pneumothorax. Small pleural effusion versus Chronic scarring in the right lung base. Emphysema and chronic interstitial changes. No consolidation. Status: Image reviewed by tn Assessment & Plan - Diagnosis (1) Subcapital fracture of neck of left femur Qualifiers: Encounter type: initial encounter Fracture type: closed Qualified Code(s) : S72.012A - Unspecified intracapsular fracture of left femur, initial encounter for closed fracture Is this a current diagnosis for this admission?: Yes Plan: 78-year-old female with displaced left subcapital femoral neck fracture. Patient currently bedrest and given pain control. Discussed with the family and the patient did need to proceed with left hip hemiarthroplasty to help with ambulation. Discussed the nonoperative treatment and the potential complications associated with it. I also discussed the complications of proceeding with surgery. Patient currently being evaluated and hopefully cleared from cardiology standpoint. We will preop the patient to proceed with surgery tomorrow pending clearance from cardiology.
[2018-07-15] MEDS: AMLODIPINE BESYLATE 10 MG TABLET PO SCH (12:42)
[2018-07-15] MEDS: INSULIN REG, HUMAN 100 UNIT/ML 3 ML VIAL (PYX) SUBCUT PRN (12:43)
[2018-07-15] MEDS: RINGERS SOLUTION,LACTATED 1,000 ML IV PRN (12:43)
[2018-07-15] MEDS: VALSARTAN 160 MG TABLET PO SCH (12:43)
[2018-07-15] MEDS: MORPHINE SULFATE 10 MG/ML INJ IV PRN (12:58)
--- NOTE | 2018-07-15 14:42 | XCELERA REPORT ---
[address] [address] Transthoracic Echocardiogram Report Name: SOFY BRYANT Age: 78 yrs Gender: Female : 1940 Patient Status: Inpatient Patient Location: [address] [place], [place] [address] Study Date: 07/15/2018 11:56 AM Height: 59 in Weight: 106 lb BSA: 1.4 m2 Procedure: A complete two-dimensional transthoracic echocardiogram was performed (2D, M-mode, spectral and color flow Doppler). The study was technically adequate with some images being suboptimal in quality. Reason For Study: CAD/preop Ordering Physician: CONNOR ALBARRAN Performed By: Evi Welch Interpretation Summary The left ventricular ejection fraction is normal. There is mild concentric left ventricular hypertrophy. The left ventricle is grossly normal size. Doppler measurements suggest pseudonormalized left ventricular relaxation, which is associated with grade II/IV or mild to moderate diastolic dysfunction Wall motion cannot be accurately commented on, but no definite regional wall motion abnormalities noted. The right ventricle is grossly normal size. The right ventricular systolic function is normal. The right atrium is normal in size Borderline left atrial enlargement. There is a trace to mild amount of mitral regurgitation There is no mitral valve stenosis. There is no aortic valve stenosis No aortic regurgitation is present. There is a trace or physiologic amount of tricuspid regurgitation Tricuspid regurgitation jet envelope not well defined to measure RV systolic pressure accurately. The aortic root is not well visualized but is probably normal size. The inferior vena cava appeared small and collapsed with respiration (RAP 0-5 mmHg) There is no pericardial effusion. MMode/2D Measurements & Calculations RVDd: 1.9 cm LVIDd: 3.4 cm FS: 16.2 % Ao root diam: 2.1 cm IVSd: 1.1 cm LVIDs: 2.9 cm EDV(Teich): 48.0 ml Ao root area: 3.4 cm2 LVPWd: 1.1 cm ESV(Teich): 31.2 ml LA dimension: 3.1 cm EF(Teich): 35.0 % Doppler Measurements & Calculations MV E max josey: MV P1/2t max josey: Ao V2 max: LV V1 max P.5 cm/sec 88.4 cm/sec 110.9 cm/sec 2.6 mmHg MV A max josey: MV P1/2t: 47.0 msec Ao max P.9 mmHg LV V1 max: 99.7 cm/sec MVA(P1/2t): 4.7 cm2 80.0 cm/sec MV E/A: 0.67 MV dec slope: 550.7 cm/sec2 MV dec time: 0.29 sec PA V2 max: TR max josey: MV P1/2t-pr_phl: 78.7 cm/sec 215.6 cm/sec 47.0 msec PA max PG: TR max P.6 mmHg 2.5 mmHg Left Ventricle The left ventricle is grossly normal size. There is mild concentric left ventricular hypertrophy. The left ventricular ejection fraction is normal. Doppler measurements suggest pseudonormalized left ventricular relaxation, which is associated with grade II/IV or mild to moderate diastolic dysfunction. Wall motion cannot be accurately commented on, but no definite regional wall motion abnormalities noted. Right Ventricle The right ventricle is grossly normal size. There is normal right ventricular wall thickness. The right ventricular systolic function is normal. Atria The right atrium is normal in size. Borderline left atrial enlargement. Interarterial septum not well visualized and not well dopplered. Cannot comment on ASD/PFO presence. Mitral Valve The mitral valve leaflets are sclerotic, but show no functional abnormalities. There is no mitral valve stenosis. There is a trace to mild amount of mitral regurgitation. Aortic Valve The aortic valve opens well. There is no aortic valve stenosis. No aortic regurgitation is present. Tricuspid Valve The tricuspid valve is not well visualized secondary to technical limitations. There is no tricuspid stenosis. There is a trace or physiologic amount of tricuspid regurgitation. Tricuspid regurgitation jet envelope not well defined to measure RV systolic pressure accurately. Pulmonic Valve The pulmonic valve is not well visualized. Great Vessels The aortic root is not well visualized but is probably normal size. The inferior vena cava appeared small and collapsed with respiration (RAP 0-5 mmHg). Effusions There is no pericardial effusion. : CONNOR ALBARRAN > Bella Richard
[2018-07-15 14:46] LABS: CREATINE KINASE MB 1.04 ng/mL (<4.55); TROPONIN I 0.096 ng/mL
--- NOTE | 2018-07-15 14:53 | PDOC PROGRESS REPORT ---
Subjective Progress Note for:: 07/15/18 Subjective:: Patient has no new complaints. Still waiting to have 2D echocardiogram. Patient was seen on morning rounds. Pt is denying any chest arm or neck discomfort. Patient denying any PND, orthopnea. Patient denied any sustained palpitations, dizziness, syncope, near syncope. Patient denying any fever chills. Patient denying any other significant discomfort. Patient is maintaining sinus rhythm. Review of systems: Rest review of systems negative. Medications: Medications have been reviewed. Reason For Visit: LEFT HIP FRACTURE Physical Exam Vital Signs: Temp Pulse Resp BP Pulse Ox 99.6 F 86 17 160/80 H 90 L 07/15/18 12:36 07/15/18 14:00 07/15/18 12:36 07/15/18 12:36 07/15/18 12:36 Intake & Output 07/14/18 07/15/18 07/16/18 06:59 06:59 06:59 Intake Total 265 1615 Output Total 1650 1000 Balance -1385 615 Weight 51 kg Exam: GENERAL: well-nourished and in no acute distress. Alert and oriented x3 HEAD: Atraumatic, normocephalic. EYES: Pupils equal round and reactive to light, extraocular movements intact, sclera anicteric, conjunctiva are normal. ENT: TMs normal, nares patent, oropharynx clear without exudates. Moist mucous membranes. No oral ulcerations or bleeding gums noted NECK: supple without lymphadenopathy. Trachea is central. No cervical or axillary lymphadenopathy noted. Carotids are 2+, JVD WNL LUNGS: Respiration seems nonlabored, no significant accessory muscle action noted. Breath sounds clear to auscultation bilaterally and equal noted. No wheezes rales or rhonchi noted. No significant dullness noted on percussion. CHEST: Palpation of the chest wall shows no significant chest wall tenderness. HEART: [place] [employer], No PSH, 1/6 SELWYN aortic area, 1/6 gaviria systolic murmur mitral area, no rubs, no gallops. ABDOMEN: Soft, no significant tenderness appreciated, normoactive bowel sounds. No guarding, no rebound. No rigidity noted . No masses appreciated. EXTREMITIES: Pedal pulses are 1-2+, no calf tenderness noted. No clubbing or cyanosis. negative pedal edema noted NEUROLOGICAL: Focused neurological exam showed no significant neurologic deficit. Normal speech, no focal weakness appreciated. PSYCH: Normal mood, normal affect. Judgment and insight within normal limits. SKIN: No significant ecchymosis, skin is noted to be warm. MUSCULOSKELETAL EXAM: No significant acute joint swelling noted. Findings of left hip fracture noted. Results Laboratory Results: 07/15/18 05:59 07/15/18 05:59 07/14/18 07/15/18 07/15/18 18:25 02:25 02:25 WBC RBC Hgb Hct MCV MCH MCHC RDW Plt Count Seg Neutrophils % Lymphocytes % Monocytes % Eosinophils % Basophils % Absolute Neutrophils Absolute Lymphocytes Absolute Monocytes Absolute Eosinophils Absolute Basophils Sodium Cancelled 136.0 L Potassium Cancelled 3.9 Chloride Cancelled 97 L Carbon Dioxide Cancelled 30 Anion Gap Cancelled 9 BUN Cancelled 22 H Creatinine Cancelled 1.29 H Est GFR ( Amer) Cancelled 49 L Est GFR (Non-Af Amer) Cancelled 40 L Glucose Cancelled 91 Calcium Cancelled 9.3 Phosphorus Magnesium Triglycerides Cholesterol LDL Cholesterol Direct VLDL Cholesterol HDL Cholesterol TSH Urine Color STRAW Urine Appearance CLEAR Urine pH 5.0 Ur Specific [place] 1.009 Urine Protein 100 H Urine Glucose (UA) 50 H Urine Ketones NEGATIVE Urine Blood SMALL H Urine Nitrite NEGATIVE Ur Leukocyte Esterase NEGATIVE Urine WBC (Auto) 1 Urine RBC (Auto) 1 07/15/18 07/15/18 07/15/18 05:59 05:59 05:59 WBC 8.4 RBC 3.39 L Hgb 10.3 L Hct 30.6 L MCV 90 MCH 30.3 MCHC 33.5 RDW 13.7 Plt Count 169 Seg Neutrophils % 71.7 Lymphocytes % 19.6 Monocytes % 7.6 Eosinophils % 0.8 Basophils % 0.3 Absolute Neutrophils 6.0 Absolute Lymphocytes 1.6 Absolute Monocytes 0.6 Absolute Eosinophils 0.1 Absolute Basophils 0.0 Sodium 135.2 L Potassium 3.8 Chloride 97 L Carbon Dioxide 27 Anion Gap 11 BUN 20 Creatinine 1.21 Est GFR ( Amer) 52 L Est GFR (Non-Af Amer) 43 L Glucose 63 L Calcium 9.5 Phosphorus 4.0 Magnesium 2.6 H Triglycerides 65 Cholesterol 129.01 LDL Cholesterol Direct < 30 VLDL Cholesterol 13.0 HDL Cholesterol 67 TSH 1.09 Urine Color Urine Appearance Urine pH Ur Specific [place] Urine Protein Urine Glucose (UA) Urine Ketones Urine Blood Urine Nitrite Ur Leukocyte Esterase Urine WBC (Auto) Urine RBC (Auto) 07/14/18 07/15/18 07/15/18 21:45 02:25 02:25 Creatine Kinase 108 CK-MB (CK-2) Troponin I 0.076 0.096 07/15/18 07/15/18 07/15/18 02:25 05:59 13:35 Creatine Kinase 145 H CK-MB (CK-2) 1.39 Troponin I Cancelled 0.097 07/15/18 13:35 Creatine Kinase CK-MB (CK-2) 1.04 Troponin I 0.096 EKG Comments: Showed sinus rhythm, LVH with secondary ST-T wave changes Impressions: Hip X-Ray 07/14/18 16:09 IMPRESSION: Left femoral neck fracture with approximately 2.4 cm of impaction and 1 cm lateral displacement. Chest X-Ray 07/14/18 17:07 IMPRESSION: No pneumothorax. Small pleural effusion versus Chronic scarring in the right lung base. Emphysema and chronic interstitial changes. No consolidation. Assessment & Plan - Diagnosis (1) Preoperative cardiovascular examination Is this a current diagnosis for this admission?: Yes (2) CAD (coronary artery disease) Qualifiers: Coronary Disease-Associated Artery/Lesion type: unspecified vessel or lesion type [place] vs. transplanted heart: [place] heart Associated angina: angina presence unspecified Qualified Code(s): I25.10 - Atherosclerotic heart disease of [place] coronary artery without angina pectoris Is this a current diagnosis for this admission?: Yes (3) Diabetes Qualifiers: Diabetes mellitus type: type 2 Diabetes mellitus lobsterman insulin use: unspecified lobsterman insulin use status Diabetes mellitus complication status : with unspecified complications Qualified Code(s): E11.8 - Type 2 diabetes mellitus with unspecified complications Is this a current diagnosis for this admission?: Yes (4) Closed intertrochanteric fracture of left hip Qualifiers: Encounter type: initial encounter Is this a current diagnosis for this admission?: Yes (5) Hyperlipidemia Qualifiers: Hyperlipidemia type: unspecified Qualified Code(s): E78.5 - Hyperlipidemia , unspecified Is this a current diagnosis for this admission?: Yes (6) Hypertension Qualifiers: Hypertension type: essential hypertension Qualified Code(s): I10 - Essential (primary) hypertension Is this a current diagnosis for this admission?: Yes (7) Paroxysmal atrial fibrillation Is this a current diagnosis for this admission?: Yes (8) Personal history of cerebrovascular accident with current residual effects Is this a current diagnosis for this admission?: Yes (9) Hx of carotid artery stenosis Is this a current diagnosis for this admission?: Yes - Notes Notes: Preop cardiovascular examination: Patient presents with an above average risk but not in the prohibitive range. Patient cleared for surgery. 2D echocardiogram is pending. Will start patient on a low-dose beta-carlos. Will also start patient on statins. Patient being placed on metoprolol succinate 25 mg p.o. twice daily and also Lipitor 20 mg p.o. nightly. Hopefully this would reduce risk of perioperative VT and other cardiovascular events. CAD: Clinically stable but patient not very physically active. Patient CABG was in 2002 therefore 17 years old and therefore is likely to have progression of graft and [place] disease. No ischemia evaluation planned. Diabetes: Recommend good management but avoid any hypo-or hyperglycemia. Hypertension: Currently is stable. Blood pressure goal of 150/90 will be acceptable. Hyperlipidemia: Continue hypotensive statin therapy. Personal history of cerebrovascular accident: Patient status post carotid endarterectomy. Currently stable. History of carotid artery stenosis: Status post carotid endarterectomy. Currently stable. Paroxysmal atrial fibrillation: Currently not on anticoagulation. She was taken off anticoagulation by her primary care electrical solderer in [facility]. Will leave decision of any chronic anticoagulation with him since patient is just visiting here. - Time Time with patient: Greater than 35 minutes - CODE STATUS was discussed, patient remains full code. Surrogate decision-maker unchanged. Multiple medical problems were addressed. More than 50% of the time spent coordinating care, discussing management plans with involved caregivers. Management plans discussed with involved personnels. Medical decision making was of moderate to high complexity, patient's has multiple comorbidities. Medications reviewed and adjusted accordingly: Yes
[2018-07-15] MEDS ORDERED: METOPROLOL SUCCINATE 25 MG TAB.SR.24H PO SCH (15:15)
[2018-07-15] MEDS: ACETAMINOPHEN 325 MG TABLET PO PRN (15:19)
[2018-07-15 17:55] LABS: CREATINE KINASE MB 0.65 ng/mL (<4.55); TROPONIN I 0.105 ng/mL
[2018-07-15] MEDS: INSULIN DETEMIR 100 UNIT/ML 3 ML PEN SUBCUT SCH (21:52)
[2018-07-15] MEDS ORDERED: INSULIN DETEMIR 100 UNIT/ML 3 ML PEN SUBCUT SCH ×2 (22:00)
[2018-07-15] MEDS ORDERED: METOPROLOL TARTRATE 25 MG TABLET PO SCH (22:00)
[2018-07-15] MEDS ORDERED: ATORVASTATIN CALCIUM 40 MG TABLET PO SCH (22:00)
[2018-07-16] MEDS ORDERED: HYDRALAZINE HCL INJ/PF 20 MG/1 ML SDV IV PRN (00:16)
[2018-07-16] MEDS: RINGERS SOLUTION,LACTATED 1,000 ML IV PRN ×2 (01:54→11:23)
[2018-07-16 05:17] LABS: ABSOLUTE MONOCYTES (AUTO) 1.2 10^3/uL (0.1-1.4); ABSOLUTE NEUT (AUTO) 8.5 10^3/uL (1.7-8.2); BASOPHILS % (AUTO) 0.4 % (0-2); EOSINOPHILS % (AUTO) 0.3 % (0-6); HEMATOCRIT 25.1 % (36.0-47.0); HEMOGLOBIN 8.7 g/dL (12.0-15.5); LYMPHOCYTES % (AUTO) 9.5 % (13-45); MEAN CORPUSCULAR HEMOGLOBIN 31.4 pg (27.0-33.4); MEAN CORPUSCULAR HGB CONC 34.7 g/dL (32.0-36.0); MEAN CORPUSCULAR VOLUME 91 fl (80-97); MONOCYTES % (AUTO) 10.8 % (3-13); PLATELET COUNT 132 10^3/uL (150-450); RED BLOOD COUNT 2.77 10^6/uL (3.72-5.28); TOTAL CELLS COUNTED % (AUTO) 100 %; WHITE BLOOD COUNT 10.8 10^3/uL (4.0-10.5)
[2018-07-16 05:40] LABS: ANION GAP 11 (5-19); BLOOD UREA NITROGEN 21 mg/dL (7-20); CALCIUM 8.6 mg/dL (8.4-10.2); CARBON DIOXIDE 27 mmol/L (22-30); CHLORIDE 93 mmol/L (98-107); GLUCOSE 45 mg/dL (75-110); POTASSIUM 3.5 mmol/L (3.6-5.0); SODIUM 130.5 mmol/L (137-145)
[2018-07-16] MEDS: HEPARIN SOD (PORCINE) 5,000 UNIT/ML 1 ML SYRINGE SUBCUT SCH (06:04)
[2018-07-16] MEDS: LANSOPRAZOLE 30 MG TAB.RAP.DR PO SCH (06:04)
[2018-07-16] MEDS ORDERED: TRANEXAMIC ACID INJ/PF 1,000 MG/10 ML SDV IV PRN (08:01)
[2018-07-16] MEDS ORDERED: VANCOMYCIN HCL 1,000 MG in DEXTROSE 5%-WATER 250 ML IV PRN (08:01)
[2018-07-16] MEDS ORDERED: POTASSI CL 20 MEQ/50 ML RIDER 20 MEQ/50 ML RTUPB IV ONE (08:40)
[2018-07-16] MEDS: POTASSIUM CHLORIDE 20 MEQ/50 ML RTU IV SCH ×2 (08:48→11:04)
[2018-07-16] MEDS ORDERED: THROMBIN (BOVINE) 5000 UNIT EPITAXIS KIT ONE (10:39)
[2018-07-16] MEDS ORDERED: THROMBIN (BOVINE) TOPICAL 20000 UNIT VIAL ONE (10:39)
[2018-07-16] MEDS ORDERED: BUPIVACAINE INJ/PF LIPOSOME/PF 266 MG/20 ML SDV ONE (10:40)
--- NOTE | 2018-07-16 10:40 | PDOC PROGRESS REPORT ---
Subjective Progress Note for:: 07/16/18 Subjective:: SOFY BRYANT is a 78 year old female visiting from [place]. Patient got up to use the bathroom became entangled in her blanket according to the daughter who is present in the room and fell to the floor. They found her with the blanket wrapped around her feet she was complaining of pain in her left hip. Patient presented to the emergency room where an x-ray revealed she has an intertrochanteric fracture of the left hip. Dr. Ariana Morel was contacted and requested hospitalist admit the patient and consult him due to her numerous chronic medical problems. Patient has a complicated medical history she has coronary artery disease with a prior myocardial infarction in 2012. She underwent bypass at that time. She is followed closely by her meat stuffer in [place]. In 2013 she was diagnosed with lung cancer and had a lobe resection on the right followed by chemotherapy. She has been disease free ever since. In September 2017 patient had a CVA and was found to have a left carotid stenosis. She apparently had old strokes identified at that time and underwent an endarterectomy in November 2017. In September she was also noted to have a brief episode of paroxysmal atrial fibrillation. She was started on Eliquis and had been on it for over 6 months. In May her meat stuffer did a telemetry monitor found no episodes of paroxysms of atrial fibrillation and discontinue the Eliquis and placed her on aspirin 81 mg. Patient suffers from hypertension diabetes hyperlipidemia she did have a seizure in September 2017 which they felt was secondary to her stroke she has been on Keppra since and has had no more reported seizures. She has not had any chest pain or cardiac complaints either prior to or after the fall. Her hemoglobin is 10.7 her white count is elevated at 15 other laboratory studies are pending at the time of this dictation. Patient's EKG shows a sinus rhythm with nonspecific T wave abnormalities in the lateral precordial and limb leads there is however no prior for comparison. Patient will be admitted to a medical monitored bed Patient's troponin remains elevated but flat and appears she has a chronic troponin anemia. She denies any chest pain or pressure. Yesterday patient had a fever of 102.5. Blood and urine cultures were obtained the urine culture is not growing anything to date. She has had low-grade fevers of 99. There is no clear cause for her febrile episode. And antibiotics were not initiated. Patient was given metoprolol the first night in preparation for her surgery and had developed a second-degree heart block type I Dr. Richard recommended continuing the beta-carlos however patient again went into a type I second- degree block with reinitiation and it was discontinued once again. Patient's only complaint this morning is the hip pain. She denies shortness of breath cough chest pain. She is scheduled for the OR later today Reason For Visit: LEFT HIP FRACTURE Physical Exam Vital Signs: Temp Pulse Resp BP Pulse Ox 99.5 F 82 18 152/49 H 94 07/16/18 07:29 07/16/18 07:29 07/16/18 07:29 07/16/18 07:29 07/16/18 07:29 Intake & Output 07/15/18 07/16/18 07/17/18 06:59 06:59 06:59 Intake Total 265 3740 529 Output Total 1650 2650 Balance -1385 1090 529 Weight 51 kg 56.7 kg Results Laboratory Results: 07/16/18 04:42 07/16/18 04:42 07/16/18 07/16/18 07/16/18 04:42 04:42 04:42 WBC 10.8 H RBC 2.77 L Hgb 8.7 L Hct 25.1 L MCV 91 MCH 31.4 MCHC 34.7 RDW 14.0 Plt Count 132 L Seg Neutrophils % 79.0 H Lymphocytes % 9.5 L Monocytes % 10.8 Eosinophils % 0.3 Basophils % 0.4 Absolute Neutrophils 8.5 H Absolute Lymphocytes 1.0 Absolute Monocytes 1.2 Absolute Eosinophils 0.0 Absolute Basophils 0.0 Sodium 130.5 L Potassium 3.5 L Chloride 93 L Carbon Dioxide 27 Anion Gap 11 BUN 21 H Creatinine 1.20 Est GFR ( Amer) 53 L Est GFR (Non-Af Amer) 44 L Glucose 45 L Calcium 8.6 Magnesium 1.7 07/14/18 07/15/18 07/15/18 21:45 02:25 02:25 Creatine Kinase 108 CK-MB (CK-2) Troponin I 0.076 0.096 07/15/18 07/15/18 07/15/18 02:25 05:59 13:35 Creatine Kinase 145 H CK-MB (CK-2) 1.39 Troponin I Cancelled 0.097 07/15/18 07/15/18 07/15/18 13:35 17:15 17:15 Creatine Kinase 110 CK-MB (CK-2) 1.04 0.65 Troponin I 0.096 0.105 Impressions: Hip X-Ray 07/14/18 16:09 IMPRESSION: Left femoral neck fracture with approximately 2.4 cm of impaction and 1 cm lateral displacement. Chest X-Ray 07/14/18 17:07 IMPRESSION: No pneumothorax. Small pleural effusion versus Chronic scarring in the right lung base. Emphysema and chronic interstitial changes. No consolidation. Assessment & Plan - Diagnosis (1) Closed intertrochanteric fracture of left hip Qualifiers: Encounter type: initial encounter Is this a current diagnosis for this admission?: Yes Plan: Admit patient to a monitored bed consult Dr. Ariana Morel regimen of the hip fracture. Subcutaneous heparin for DVT prophylaxis. Patient's cardiovascular risk by Endy's criteria is greater than 11% cardiology has been consulted (2) Elevated troponin Is this a current diagnosis for this admission?: Yes Plan: Numerous troponins all remained essentially the same. Patient has a chronic underlying troponin anemia no ischemia suspected (3) CAD (coronary artery disease) Qualifiers: Coronary Disease-Associated Artery/Lesion type: unspecified vessel or lesion type [place] vs. transplanted heart: [place] heart Associated angina: angina presence unspecified Qualified Code(s): I25.10 - Atherosclerotic heart disease of [place] coronary artery without angina pectoris Is this a current diagnosis for this admission?: Yes Plan: Patient bypass in 2002. She is followed by meat stuffer on a regular basis and recently had a telemetry monitor which showed no paroxysms of atrial fibrillation. Patient did have development of second-degree heart block for the second time with beta-blockade which has been discontinued. Echocardiogram pending. Troponin mild increase from 0.04-0.09 but overall appears flat. EKG remained stable patient has no complaints. Patient has greater than 11% chance of cardiac complication with surgery based on Endy's criteria (4) Fever Qualifiers: Fever type: unspecified Qualified Code(s): R50.9 - Fever, unspecified Is this a current diagnosis for this admission?: Yes Plan: Blood cultures urine culture pending negative to date. White count 10.5. Patient undergo hip surgery. Chest x-ray clear on admission no clear cause for the fever will monitor CBCs if patient has another febrile episode will start empiric antibiotics. (5) Paroxysmal atrial fibrillation Is this a current diagnosis for this admission?: Yes Plan: By history no atrial fibrillation recorded during this hospital stay. Patient was on Eliquis discontinued by her treating meat stuffer in [place] in May after a negative Holter monitor. (6) Diabetes mellitus type 2 in obese Is this a current diagnosis for this admission?: Yes Plan: Hemoglobin A1c 7.2 continue sliding scale. Patient received 10 units of Lantus last p.m. in preparation of surgery resume inpatient dose of 22 units nightly postoperatively. Patient on 36 in the outpatient setting due to dietary differences. (7) Seizure disorder Is this a current diagnosis for this admission?: Yes Plan: Continue Keppra (8) Hypertension Qualifiers: Hypertension type: essential hypertension Qualified Code(s): I10 - Essential (primary) hypertension Is this a current diagnosis for this admission?: Yes Plan: Mildly elevated and improved from yesterday. Continue to monitor. Patient on valsartan 80 rather than Benicar 40. On valsartan 160 with improved control. Continue amlodipine at 10 mg. (9) Hyperlipidemia Qualifiers: Hyperlipidemia type: unspecified Qualified Code(s): E78.5 - Hyperlipidemia , unspecified Is this a current diagnosis for this admission?: Yes Plan: At goal continue statin (10) Cardiac murmur Is this a current diagnosis for this admission?: Yes Plan: Mild MR no aortic valve lesions (11) History of lung cancer Is this a current diagnosis for this admission?: Yes Plan: Status post right lung resection and chemotherapy 2013 no further workup planned - Time Time Spent with patient: 25-34 minutes
[2018-07-16] MEDS: VALSARTAN 160 MG TABLET PO SCH (11:19)
[2018-07-16] MEDS ORDERED: LIDOCAINE 2% INJ-PF (20 MG/ML) 10 ML AMPUL ONE (11:19)
[2018-07-16] MEDS: AMLODIPINE BESYLATE 10 MG TABLET PO SCH (11:19)
[2018-07-16] MEDS: MIRTAZAPINE 15 MG TABLET PO SCH (11:19)
[2018-07-16] MEDS: LEVETIRACETAM 500 MG TABLET PO SCH ×2 (11:19→22:17)
[2018-07-16] MEDS ORDERED: PROPOFOL INJ 200 MG/20 ML VIAL IV ONE (11:20)
[2018-07-16] MEDS ORDERED: MIDAZOLAM 2 MG/2 ML INJ ONE (11:20)
[2018-07-16] MEDS ORDERED: DEXAMETHASONE SOD PHOSPHATE INJ 4 MG/1 ML VIAL ONE (11:20)
[2018-07-16] MEDS ORDERED: FENTANYL CITRATE INJ/PF 100 MCG/2 ML AMPUL ONE (11:20)
[2018-07-16] MEDS ORDERED: ONDANSETRON HCL INJ/PF 4 MG/2 ML SDV ONE (11:20)
[2018-07-16] MEDS ORDERED: TRANEXAMIC ACID INJ/PF 1,000 MG/10 ML SDV IV ONE ×2 (11:24→15:00)
[2018-07-16] MEDS ORDERED: BUPIVACAINE HCL/DEX-WATER/PF 15 MG/2 ML AMPULE ONE (11:25)
[2018-07-16] MEDS: ASPIRIN 81 MG TABLET, CHEWABLE PO SCH (11:34)
--- NOTE | 2018-07-16 12:42 | Operative Report ---
Operative Report DATE OF SURGERY: 07/16/18 PREOPERATIVE DIAGNOSIS: Left femoral neck fracture OPERATION: Left proximal femoral hemiarthroplasty SURGEON: LUL ORR ANESTHESIA: Spinal TISSUE REMOVED OR ALTERED: Femoral head to pathology ESTIMATED BLOOD LOSS: 50 PROCEDURE: With the patient in a right lateral decubitus position the left lower extremity hindquarter prepped and draped in a sterile fashion. A curvilinear incision made over the greater trochanter a posterior approach the hip was taken. The femur was retracted anteriorly and underlying femoral neck and head are retrieved using a corkscrew. The femoral head was measured and noted to be 45 millimeters. Attention is now turned to the femur. Access is gained to the femoral canal using a box osteotome to the piriformis fossa. The femur is then prepared using a series of tapered broaches until a number Khoi Accolade 2 size 4 broach is seated. A trial reduction was now performed using a 45 head and -3 neck. Leg length was restored and there is excellent anterior posterior stability. A decision was made to proceed with this construct. All trial implants were removed. The final number 4 femoral stem is impacted into the canal. The -3 neck is impacted onto the trunnion. Final unipolar head 45 millimeters is impacted onto the neck. The hip was reduced. The wound is copiously irrigated with pulsed lavage. A subsequent closed in layers using Vicryl and sam. A sterile dressing is applied. The patient was returned to the recovery room in satisfactory condition.
[2018-07-16] MEDS ORDERED: MORPHINE SULFATE 10 MG/ML INJ IV PRN (12:47)
[2018-07-16] MEDS ORDERED: ONDANSETRON HCL INJ/PF 4 MG/2 ML SDV IV PRN (12:47)
[2018-07-16] MEDS ORDERED: DIPHENHYDRAMINE HCL 50 MG/ML VIAL IV PRN (12:47)
[2018-07-16] MEDS ORDERED: FENTANYL CITRATE INJ/PF 100 MCG/2 ML AMPUL IV PRN ×3 (12:47)
[2018-07-16] MEDS ORDERED: MEPERIDINE HCL/PF INJ 25 MG/1 ML DISP.SYRIN IV PRN (12:47)
[2018-07-16] MEDS ORDERED: PROMETHAZINE HCL INJ 25 MG/1 ML VIAL IV PRN ×2 (12:47)
[2018-07-16] MEDS ORDERED: HEPARIN SOD (PORCINE) 5,000 UNIT/ML 1 ML SYRINGE SUBCUT SCH (14:00)
--- NOTE | 2018-07-16 17:07 | RADIOLOGY REPORT (SQ) ---
EXAM DESCRIPTION: PELVIS AP COMPLETED DATE/TIME: 07/16/2018 4:43 pm REASON FOR STUDY: SP left hip repair COMPARISON: None. NUMBER OF VIEWS: One view TECHNIQUE: AP Pelvis LIMITATIONS: None. FINDINGS: Postoperative image of the pelvis and proximal femurs shows a left hip arthroplasty in goo d position. IMPRESSION: Left hip arthroplasty. Refer to operative note for further information. TECHNICAL DOCUMENTATION: JOB ID: [id number] [employer]- All Rights Reserved Reading location - IP/workstation name: [email or web address]
[2018-07-16] MEDS: HYDROCODONE/ACETAMINOPHEN 5-325 MG TABLET PO PRN (18:16)
--- NOTE | 2018-07-16 19:49 | PDOC PROGRESS REPORT ---
Subjective Progress Note for:: 07/16/18 Subjective:: Patient is status post left hip surgery. Pt is denying any chest arm or neck discomfort. Patient denying any PND, orthopnea. Patient denied any sustained palpitations, dizziness, syncope, near syncope. Patient denying any fever chills. Patient denying any other significant discomfort. Patient is maintaining sinus rhythm. Overnight patient was noted to have Wenckebach. She had a short episode of Wenckebach postop. But currently maintaining sinus rhythm Review of systems: Rest review of systems negative. Medications: Medications have been reviewed. Reason For Visit: LEFT HIP FRACTURE Physical Exam Vital Signs: Temp Pulse Resp BP Pulse Ox 100.8 F H 84 18 185/57 H 100 07/16/18 18:08 07/16/18 18:08 07/16/18 18:08 07/16/18 18:08 07/16/18 18:08 Intake & Output 07/15/18 07/16/18 07/17/18 06:59 06:59 06:59 Intake Total 265 3740 3644 Output Total 1650 2650 3990 Balance -1385 1090 -346 Weight 51 kg 56.7 kg 56.7 kg Exam: GENERAL: well-nourished and in no acute distress. Alert and oriented x 2 HEAD: Atraumatic, normocephalic. EYES: Pupils equal round and reactive to light, extraocular movements intact, sclera anicteric, conjunctiva are normal. ENT: TMs normal, nares patent, oropharynx clear without exudates. Moist mucous membranes. No oral ulcerations or bleeding gums noted NECK: supple without lymphadenopathy. Trachea is central. No cervical or axillary lymphadenopathy noted. Carotids are 2+, JVD WNL LUNGS: Respiration seems nonlabored, no significant accessory muscle action noted. Breath sounds clear to auscultation bilaterally and equal noted. No wheezes rales or rhonchi noted. No significant dullness noted on percussion. CHEST: Palpation of the chest wall shows no significant chest wall tenderness. 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 ABDOMEN: Soft, no significant tenderness appreciated, normoactive bowel sounds. No guarding, no rebound. No rigidity noted . No masses appreciated. EXTREMITIES: Pedal pulses are 1-2+, no calf tenderness noted. No clubbing or cyanosis. negative pedal edema noted NEUROLOGICAL: Focused neurological exam showed no significant neurologic deficit. Normal speech, full neurological exam not performed PSYCH: Mood and judgment not checked. SKIN: No significant ecchymosis, skin is noted to be warm. MUSCULOSKELETAL EXAM: No significant acute joint swelling noted. Postop left hip changes noted Results Laboratory Results: 07/16/18 04:42 07/16/18 04:42 07/16/18 07/16/18 07/16/18 04:42 04:42 04:42 WBC 10.8 H RBC 2.77 L Hgb 8.7 L Hct 25.1 L MCV 91 MCH 31.4 MCHC 34.7 RDW 14.0 Plt Count 132 L Seg Neutrophils % 79.0 H Lymphocytes % 9.5 L Monocytes % 10.8 Eosinophils % 0.3 Basophils % 0.4 Absolute Neutrophils 8.5 H Absolute Lymphocytes 1.0 Absolute Monocytes 1.2 Absolute Eosinophils 0.0 Absolute Basophils 0.0 Sodium 130.5 L Potassium 3.5 L Chloride 93 L Carbon Dioxide 27 Anion Gap 11 BUN 21 H Creatinine 1.20 Est GFR ( Amer) 53 L Est GFR (Non-Af Amer) 44 L Glucose 45 L Calcium 8.6 Magnesium 1.7 Blood Type Antibody Screen 07/16/18 09:22 WBC RBC Hgb Hct MCV MCH MCHC RDW Plt Count Seg Neutrophils % Lymphocytes % Monocytes % Eosinophils % Basophils % Absolute Neutrophils Absolute Lymphocytes Absolute Monocytes Absolute Eosinophils Absolute Basophils Sodium Potassium Chloride Carbon Dioxide Anion Gap BUN Creatinine Est GFR ( Amer) Est GFR (Non-Af Amer) Glucose Calcium Magnesium Blood Type A POSITIVE Antibody Screen NEGATIVE 07/14/18 07/15/18 07/15/18 21:45 02:25 02:25 Creatine Kinase 108 CK-MB (CK-2) Troponin I 0.076 0.096 07/15/18 07/15/18 07/15/18 02:25 05:59 13:35 Creatine Kinase 145 H CK-MB (CK-2) 1.39 Troponin I Cancelled 0.097 07/15/18 07/15/18 07/15/18 13:35 17:15 17:15 Creatine Kinase 110 CK-MB (CK-2) 1.04 0.65 Troponin I 0.096 0.105 EKG Comments: Showed sinus rhythm with transient Wenckebach Impressions: Hip X-Ray 07/14/18 16:09 IMPRESSION: Left femoral neck fracture with approximately 2.4 cm of impaction and 1 cm lateral displacement. Chest X-Ray 07/14/18 17:07 IMPRESSION: No pneumothorax. Small pleural effusion versus Chronic scarring in the right lung base. Emphysema and chronic interstitial changes. No consolidation. Pelvis X-Ray 07/16/18 00:00 IMPRESSION: Left hip arthroplasty. Refer to operative note for further information. Assessment & Plan - Diagnosis (1) [place] (type) I (Wenckebach's) atrioventricular block Is this a current diagnosis for this admission?: Yes (2) CAD (coronary artery disease) Qualifiers: Coronary Disease-Associated Artery/Lesion type: unspecified vessel or lesion type [place] vs. 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 use: unspecified group home insulin use status Diabetes mellitus complication status : with unspecified complications Qualified Code(s): E11.8 - Type 2 diabetes mellitus with unspecified complications Is this a current diagnosis for this admission?: Yes (4) Closed intertrochanteric fracture of left hip Qualifiers: Encounter type: initial encounter Is this a current diagnosis for this admission?: Yes (5) Hyperlipidemia Qualifiers: Hyperlipidemia type: unspecified Qualified Code(s): E78.5 - Hyperlipidemia , unspecified Is this a current diagnosis for this admission?: Yes (6) Hypertension Qualifiers: Hypertension type: essential hypertension Qualified Code(s): I10 - Essential (primary) hypertension Is this a current diagnosis for this admission?: Yes (7) Paroxysmal atrial fibrillation Is this a current diagnosis for this admission?: Yes (8) Personal history of cerebrovascular accident with current residual effects Is this a current diagnosis for this admission?: Yes (9) Hx of carotid artery stenosis Is this a current diagnosis for this admission?: Yes - Notes Notes: Postop cardiovascular examination: Patient did fine with surgery. Patient was noted to have Wenckebach, second-degree [place] type I heart block and therefore agree with stopping beta-carlos therapy. [place] type I second-degree heart block: Asymptomatic. Transient. No intervention noted. Agree with stopping beta-carlos. CAD: Clinically stable but patient not very physically active. Patient CABG was in 2002 therefore 17 years old and therefore is likely to have progression of graft and [place] disease. No ischemia evaluation planned. 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 Diabetes: Recommend good management but avoid any hypo-or hyperglycemia. Hypertension: Currently is stable. Blood pressure goal of 150/90 will be acceptable. Hyperlipidemia: Continue hypotensive statin therapy. Personal history of cerebrovascular accident: Patient status post carotid endarterectomy. Currently stable. History of carotid artery stenosis: Status post carotid endarterectomy. Currently stable. Paroxysmal atrial fibrillation: Currently not on anticoagulation. She was taken off anticoagulation by her primary care butcher meat in [facility]. Will leave decision of any chronic anticoagulation with him since patient is just visiting here. - Time Time with patient: 15-25 minutes - Patient has done reasonably well. Will follow patient on as needed basis. Please call us if any new cardiovascular related problem arises. Medications reviewed and adjusted accordingly: Yes
[2018-07-16] MEDS: MORPHINE SULFATE 10 MG/ML INJ IV PRN (20:12)
[2018-07-16] MEDS: ATORVASTATIN CALCIUM 20 MG TABLET PO SCH (22:17)
[2018-07-16] MEDS: INSULIN DETEMIR 100 UNIT/ML 3 ML PEN SUBCUT SCH (22:18)
[2018-07-16 22:32] LABS: HEMATOCRIT 33.9 % (36.0-47.0); MEAN CORPUSCULAR HEMOGLOBIN 29.8 pg (27.0-33.4); MEAN CORPUSCULAR HGB CONC 34.7 g/dL (32.0-36.0); PLATELET COUNT 119 10^3/uL (150-450); RED BLOOD COUNT 3.93 10^6/uL (3.72-5.28); RED CELL DISTRIBUTION WIDTH 16.4 % (11.5-14.0); WHITE BLOOD COUNT 11.2 10^3/uL (4.0-10.5)
[2018-07-16 22:33] LABS: HEMOGLOBIN 11.7 g/dL (12.0-15.5); MEAN CORPUSCULAR VOLUME 86 fl (80-97)
[2018-07-17] MEDS: RINGERS SOLUTION,LACTATED 1,000 ML IV PRN (00:40)
[2018-07-17 05:30] LABS: ABSOLUTE EOSINOPHILS # (AUTO) 0.1 10^3/uL (0.0-0.6); ABSOLUTE LYMPHOCYTES (AUTO) 1.3 10^3/uL (0.5-4.7); ABSOLUTE MONOCYTES (AUTO) 1.6 10^3/uL (0.1-1.4); BASOPHILS % (AUTO) 0.3 % (0-2); EOSINOPHILS % (AUTO) 0.8 % (0-6); HEMATOCRIT 34.4 % (36.0-47.0); LYMPHOCYTES % (AUTO) 11.1 % (13-45); MEAN CORPUSCULAR HGB CONC 34.9 g/dL (32.0-36.0); MEAN CORPUSCULAR VOLUME 86 fl (80-97); MONOCYTES % (AUTO) 12.9 % (3-13); PLATELET COUNT 116 10^3/uL (150-450); RED CELL DISTRIBUTION WIDTH 16.6 % (11.5-14.0); SEGMENTED NEUTROPHILS % (AUTO) 74.9 % (42-78); TOTAL CELLS COUNTED % (AUTO) 100 %; WHITE BLOOD COUNT 12.1 10^3/uL (4.0-10.5)
[2018-07-17 06:04] LABS: ANION GAP 11 (5-19); BLOOD UREA NITROGEN 18 mg/dL (7-20); CALCIUM 8.8 mg/dL (8.4-10.2); CARBON DIOXIDE 25 mmol/L (22-30); CHLORIDE 95 mmol/L (98-107); GLUCOSE 143 mg/dL (75-110); POTASSIUM 4.4 mmol/L (3.6-5.0); SODIUM 131.1 mmol/L (137-145)
[2018-07-17] MEDS: LANSOPRAZOLE 30 MG TAB.RAP.DR PO SCH (06:44)
--- NOTE | 2018-07-17 07:16 | PDOC PROGRESS REPORT ---
Subjective Progress Note for:: 07/17/18 Reason For Visit: LEFT HIP FRACTURE 78-year-old black female postop day 1 left proximal femoral hemiarthroplasty for femoral neck fracture. Patient comfortable overnight. Has not been mobilized with physical therapy as of yet. Physical Exam Vital Signs: Temp Pulse Resp BP Pulse Ox 37.5 C 81 16 154/53 H 93 07/17/18 03:46 07/17/18 03:46 07/17/18 03:46 07/17/18 03:46 07/17/18 03:46 Intake & Output 07/16/18 07/17/18 07/18/18 06:59 06:59 06:59 Intake Total 3740 5084 Output Total 2650 5290 Balance 1090 -206 Weight 56.7 kg 54.1 kg General appearance: PRESENT: no acute distress, mild distress Head exam: PRESENT: normocephalic Respiratory exam: PRESENT: unlabored Cardiovascular exam: PRESENT: RRR Musculoskeletal exam: PRESENT: other - Left hip dressing clean dry and intact. Leg lengths are equal. Neurological exam: PRESENT: alert, awake Psychiatric exam: PRESENT: other - Confused Skin exam: PRESENT: dry, intact, warm. ABSENT: cyanosis, rash Results Laboratory Results: 07/17/18 04:41 07/17/18 04:41 07/16/18 07/16/18 07/16/18 04:42 09:22 21:25 WBC 11.2 H RBC 3.93 Hgb 11.7 L D Hct 33.9 L MCV 86 D MCH 29.8 MCHC 34.7 RDW 16.4 H Plt Count 119 L Seg Neutrophils % Lymphocytes % Monocytes % Eosinophils % Basophils % Absolute Neutrophils Absolute Lymphocytes Absolute Monocytes Absolute Eosinophils Absolute Basophils Sodium Potassium Chloride Carbon Dioxide Anion Gap BUN Creatinine Est GFR ( Amer) Est GFR (Non-Af Amer) Glucose Calcium Magnesium 1.7 Blood Type A POSITIVE Antibody Screen NEGATIVE 07/17/18 07/17/18 04:41 04:41 WBC 12.1 H RBC 4.00 Hgb 12.0 Hct 34.4 L MCV 86 MCH 30.0 MCHC 34.9 RDW 16.6 H Plt Count 116 L Seg Neutrophils % 74.9 Lymphocytes % 11.1 L Monocytes % 12.9 Eosinophils % 0.8 Basophils % 0.3 Absolute Neutrophils 9.0 H Absolute Lymphocytes 1.3 Absolute Monocytes 1.6 H Absolute Eosinophils 0.1 Absolute Basophils 0.0 Sodium 131.1 L Potassium 4.4 Chloride 95 L Carbon Dioxide 25 Anion Gap 11 BUN 18 Creatinine 1.14 Est GFR ( Amer) 56 L Est GFR (Non-Af Amer) 46 L Glucose 143 H Calcium 8.8 Magnesium Blood Type Antibody Screen 07/14/18 07/15/18 07/15/18 21:45 02:25 02:25 Creatine Kinase 108 CK-MB (CK-2) Troponin I 0.076 0.096 07/15/18 07/15/18 07/15/18 02:25 05:59 13:35 Creatine Kinase 145 H CK-MB (CK-2) 1.39 Troponin I Cancelled 0.097 07/15/18 07/15/18 07/15/18 13:35 17:15 17:15 Creatine Kinase 110 CK-MB (CK-2) 1.04 0.65 Troponin I 0.096 0.105 Impressions: Hip X-Ray 07/14/18 16:09 IMPRESSION: Left femoral neck fracture with approximately 2.4 cm of impaction and 1 cm lateral displacement. Chest X-Ray 07/14/18 17:07 IMPRESSION: No pneumothorax. Small pleural effusion versus Chronic scarring in the right lung base. Emphysema and chronic interstitial changes. No consolidation. Pelvis X-Ray 07/16/18 00:00 IMPRESSION: Left hip arthroplasty. Refer to operative note for further information. Status: Imported from [facility] Assessment & Plan - Diagnosis (1) Closed intertrochanteric fracture of left hip Qualifiers: Encounter type: initial encounter Is this a current diagnosis for this admission?: Yes Plan: Status post femoral hemiarthroplasty. Plan for mobilization with physical therapy and weightbearing as tolerated basis. Patient and her family are from [place]. The requesting potential transfer back to [place] for rehabilitation. Social work has been consulted. - Time Time Spent with patient: 15-24 minutes Anticipated discharge: SNF Within: Other
[2018-07-17] MEDS: HYDROCODONE/ACETAMINOPHEN 5-325 MG TABLET PO PRN ×2 (09:15→17:28)
[2018-07-17] MEDS: ASPIRIN 81 MG TABLET, CHEWABLE PO SCH (09:15)
[2018-07-17] MEDS: AMLODIPINE BESYLATE 10 MG TABLET PO SCH (09:15)
[2018-07-17] MEDS: VALSARTAN 160 MG TABLET PO SCH (09:15)
[2018-07-17] MEDS: MIRTAZAPINE 15 MG TABLET PO SCH (09:15)
[2018-07-17] MEDS: LEVETIRACETAM 500 MG TABLET PO SCH ×2 (09:16→21:44)
--- NOTE | 2018-07-17 10:14 | PDOC CONSULTATION ---
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 She complained of left hip pain and difficulty with ambulation, and x-ray revealed a left femoral neck fracture with approximately 2.4 cm of impaction and 1 cm lateral displacement. She was evaluated and admitted by hospitalist medicine for management of her multiple medical comorbidities. The patient was also evaluated by cardiology for preoperative clearance. She was evaluated by orthopedic surgery and recommended a left hip hemiarthroplasty. However, prior to the surgery, she did develop a fever of 102.5 (workup was negative) as well as heart block, for which her beta-carlos was discontinued. Ultimately, the patient underwent left hip hemiarthroplasty on 07/16/[address] Gunner Sin of orthopedic surgery. This operatively, the patient is allowed weightbearing as tolerated on the left lower extremity with posterior hip precautions. Postoperative course included acute blood loss anemia requiring blood transfusion. Physical medicine and rehabilitation consultation was requested to evaluate the patient for admission to acute inpatient rehabilitation. Today, the patient was seen and examined with her nurse at bedside. She admits only to mild pain in the left hip. She is unable to tell me exactly when her last bowel movement was, and she has a Yoon catheter in place. Past Medical History Cardiac Medical History: Reports: Atrial Fibrillation, Coronary Artery Disease, Myocardial Infarction, Hyperlipidema, Hypertension Pulmonary Medical History: Reports: Bronchitis EENT Medical History: Reports: None Neurological Medical History: Reports: Seizures, Other - Daughter states she has some dementia Endocrine Medical History: Reports: Diabetes Mellitus Type 2 Renal/ Medical History: Reports: None Malignancy Medical History: Reports: Lung Cancer - Left upper lobe resected 2013 GI Medical History: Reports: None Musculoskeltal Medical History: Reports: Arthritis Skin Medical History: Reports: None Psychiatric Medical History: Reports: Dementia Traumatic Medical History: Reports: None Infectious Medical History: Reports: None Past Surgical History Past Surgical History: Reports: Carotid Endarterectomy - Left November 2017, Coronary Artery Bypass Graft - 2012, Orthopedic Surgery - Rotator cuff surgery to the left, Other - Right lobe lung resection for cancer 2013 Social History Lives with: Family Smoking Status: Former Smoker Cigars Per Day: 1 Last Time Smoked: September 2017 Frequency of Alcohol Use: None Hx Recreational Drug Use: No Drugs: None Hx Prescription Drug Abuse: No Past Social History Note: Vanita Corrales lives with her daughter in a 2 level home. The patient is unable to tell me how many steps to enter. She denies smoking, drinking alcohol , and using drugs. Prior Functional Status: According to the patient's nurse, her daughter reported to her that the patient was ambulatory and did not require much assistance at baseline. Current Functional Status: Therapy evaluations are pending. Family history: Noncontributory to the current presentation. - Advance Directive Resuscitation Status: Full Code Family History Family History: DM - Father, Other - Valve replacement mother Parental Family History Reviewed: Yes Children Family History Reviewed: Yes Sibling(s) Family History Reviewed.: Yes Medication/Allergy Home Medications: Amlodipine Besylate [Norvasc 10 mg Tablet] 10 mg PO DAILY 07/14/18 Aspirin [Aspirin 81 mg Chewable Tablet] 81 mg PO DAILY 07/14/18 Atorvastatin Calcium 40 mg PO QHS 07/14/18 Insulin Detemir [Levemir Flextouch] 36 units SQ DAILY 07/14/18 Levetiracetam [Keppra 500 mg Tablet] 500 mg PO Q12 07/14/18 Mirtazapine [Mirtazapine] 15 mg PO QHS 07/14/18 Olmesartan/Hydrochlorothiazide [Olmesartan-Hctz 40-25 mg Tab] 1 each PO DAILY Apixaban [Eliquis 2.5 mg Tablet] 2.5 mg PO BID 07/15/18 Allergies/Adverse Reactions: latex Adverse Reaction (Verified 07/14/18 14:10) Review of Systems Review of Systems: Constitutional: No fevers, chills, sweats, weight loss Eye: No recent visual problems, no blurry vision, no double vision ENMT: No ear pain, nasal congestion, sore throat Respiratory: No shortness of breath, cough, sputum production Cardiovascular: No chest pain, palpitations, syncope Gastrointestinal: No nausea, vomiting, diarrhea, abdominal pain Genitourinary: No hematuria, dysuria, flank or suprapubic pain Reed/Lymph: Negative for bruising tendency, swollen lymph glands Endocrine: Negative for excessive thirst, excessive hunger, extreme fatigue Musculoskeletal: Positive for mild left hip pain and resulting decreased active range of motion Integumentary: No rash, pruritus, abrasions Neurologic: No headaches, numbness, speech problems. Positive for focal weakness on the left lower extremity secondary to pain. Psychiatric: No anxiety, depression Physical Exam Vital Signs: Temp Pulse Resp BP Pulse Ox 99.6 F 94 18 117/64 100 07/17/18 07:26 07/17/18 07:26 07/17/18 07:26 07/17/18 07:26 07/17/18 07:26 Intake & Output 07/16/18 07/17/18 07/18/18 06:59 06:59 06:59 Intake Total 3740 5084 1000 Output Total 2650 5290 Balance 1090 -206 1000 Weight 56.7 kg 54.1 kg Exam: General: Awake and Alert. No acute distress. Resting comfortably in bed with her nurse at bedside. Head: Normocephalic. Atraumatic. Eyes: Pupils equal, round, and minimally reactive to light. EOMI. Sclera white. Ears: No drainage noted. Nose: Nares normal & without exudate. Nasal cannula oxygen in place. Oropharynx: Moist mucous membranes. Neck: Supple movements. Cardiovascular: Regular rate & rhythm. No murmurs, rubs, or gallops appreciated. Pulmonary: Lungs clear to auscultation bilaterally. No increased work of breathing. Gastrointestinal: Abdomen soft, non-tender, non-distended. Normoactive bowel sounds. Skin: Texture and turgor normal. Warm and dry. Left lateral thigh surgical dressing in place, clean, dry, intact. Psychiatric: The patient is oriented to herself and location but not completely to situation. She knows that she is here for a hip fracture but she does not recall that she had operative intervention for this. She is not oriented to the date. It is unclear as to whether this confusion is due to strictly to the patient's dementia or related to treatment with narcotics for her pain. Extremities: Arthritic changes of the hands and feet are noted. Status post left hip hemiarthroplasty. Neurological: CN III-XII grossly intact. Sensation to light touch is grossly intact. Tone is normal. Proprioception is questionably impaired. No Larsen's. No Babinski. Speech is fluent with good content and without dysarthria. Muscle Strength: She appears to have 4/5 strength of left shoulder abductor's and left wrist extensors as well as 5/5 strength otherwise in the upper extremities. She has at least 4/5 strength of bilateral ankle and toe dorsiflexors and plantar flexors. She did not attempt to flex her hips or her knees. Results Laboratory Results: 07/17/18 04:41 07/17/18 04:41 07/16/18 07/16/18 07/17/18 09:22 21:25 04:41 WBC 11.2 H 12.1 H RBC 3.93 4.00 Hgb 11.7 L D 12.0 Hct 33.9 L 34.4 L MCV 86 D 86 MCH 29.8 30.0 MCHC 34.7 34.9 RDW 16.4 H 16.6 H Plt Count 119 L 116 L Seg Neutrophils % 74.9 Lymphocytes % 11.1 L Monocytes % 12.9 Eosinophils % 0.8 Basophils % 0.3 Absolute Neutrophils 9.0 H Absolute Lymphocytes 1.3 Absolute Monocytes 1.6 H Absolute Eosinophils 0.1 Absolute Basophils 0.0 Sodium Potassium Chloride Carbon Dioxide Anion Gap BUN Creatinine Est GFR ( Amer) Est GFR (Non-Af Amer) Glucose Calcium Blood Type A POSITIVE Antibody Screen NEGATIVE 07/17/18 04:41 WBC RBC Hgb Hct MCV MCH MCHC RDW Plt Count Seg Neutrophils % Lymphocytes % Monocytes % Eosinophils % Basophils % Absolute Neutrophils Absolute Lymphocytes Absolute Monocytes Absolute Eosinophils Absolute Basophils Sodium 131.1 L Potassium 4.4 Chloride 95 L Carbon Dioxide 25 Anion Gap 11 BUN 18 Creatinine 1.14 Est GFR ( Amer) 56 L Est GFR (Non-Af Amer) 46 L Glucose 143 H Calcium 8.8 Blood Type Antibody Screen 07/14/18 07/15/18 07/15/18 21:45 02:25 02:25 Creatine Kinase 108 CK-MB (CK-2) Troponin I 0.076 0.096 07/15/18 07/15/18 07/15/18 02:25 05:59 13:35 Creatine Kinase 145 H CK-MB (CK-2) 1.39 Troponin I Cancelled 0.097 07/15/18 07/15/18 07/15/18 13:35 17:15 17:15 Creatine Kinase 110 CK-MB (CK-2) 1.04 0.65 Troponin I 0.096 0.105 Impressions: Hip X-Ray 07/14/18 16:09 IMPRESSION: Left femoral neck fracture with approximately 2.4 cm of impaction and 1 cm lateral displacement. Chest X-Ray 07/14/18 17:07 IMPRESSION: No pneumothorax. Small pleural effusion versus Chronic scarring in the right lung base. Emphysema and chronic interstitial changes. No consolidation. Pelvis X-Ray 07/16/18 00:00 IMPRESSION: Left hip arthroplasty. Refer to operative note for further information. Assessment & Plan - Plan Summary Plan Summary: Assessment and Plan: 78-year-old female with left hip fracture status post left hip hemiarthroplasty. 1. Gait and ADL Dysfunction secondary to left hip fracture - Continue PT and OT to maximize mobility, safety, endurance, and self-care. 2. Left hip fracture - Status post left hip hemiarthroplasty by Dr. Gunner Sin on 07/16/2018 - Weightbearing as tolerated on the left lower extremity with posterior hip precautions - Pain control and DVT prophylaxis per orthopedic surgery 3. Anemia - Secondary to acute blood loss from recent fracture and surgery - Status post transfusion of 2 units of packed red blood cells - Continue to follow H&H closely and transfuse as necessary 4. Diabetes mellitus type 2 - Continue blood sugar management per hospitalist medicine 5. History of CVA and dementia - Continue antiplatelet and statin - Complicating comorbidity in the patient's rehabilitation course 6. Disposition - Based on the patient's diagnosis and medical comorbidities, she may be a candidate for acute inpatient rehabilitation, but a final recommendation cannot be made at this time. Her therapy evaluations are pending. The patient does have a degree of dementia, which may impair her ability to participate in and benefit from intensive therapies. If this is the case, the patient would be better served with a prolonged, less intensive course of rehabilitation that can be provided at the subacute level. We will continue to follow the patient' s progress in acute care therapies to make a final recommendation regarding the most appropriate postacute care rehabilitation setting. This case was discussed with the patient's acute care therapists and nurse on the floor. Thank you for allowing us to participate in the care of this patient. Please call with any questions. A total of 65 minutes was spent on [id number] communication with the patient and coordination of care.
[2018-07-17] MEDS: INSULIN REG, HUMAN 100 UNIT/ML 3 ML VIAL (PYX) SUBCUT PRN ×2 (12:15→22:25)
--- NOTE | 2018-07-17 13:27 | PDOC PROGRESS REPORT ---
Subjective Progress Note for:: 07/17/18 Subjective:: VANITA BRYANT is a 78 year old female, visiting from [place], who presented to the emergency room where an x-ray revealed she had an femoral neck fracture of her left hip. According to her daughter the patient got up to use the bathroom became entangled in her blanket and fell to the floor. She was found with the blanket wrapped around her feet she was complaining of pain in her left hip. Dr. Ariana Morel was contacted and requested hospitalist admit the patient and consult him as she has a complicated medical history with coronary artery disease with a prior myocardial infarction in 2012. She underwent bypass at that time. She is followed closely by her cafeteria director in [place]. In 2013 she was diagnosed with lung cancer and had a lobe resection on the right followed by chemotherapy. She has been disease free ever since. In September 2017 patient had a CVA and was found to have a left carotid stenosis. She apparently had old strokes identified at that time and underwent an endarterectomy in November 2017. In September she was also noted to have a brief episode of paroxysmal atrial fibrillation. She was started on Eliquis and had been on it for over 6 months. In May her cafeteria director did a manager cardiac found no episodes of paroxysms of atrial fibrillation and discontinue the Eliquis and placed her on aspirin 81 mg. Patient suffers from hypertension diabetes hyperlipidemia she did have a seizure in September 2017 which they felt was secondary to her stroke she has been on Keppra since and has had no more reported seizures. She has not had any chest pain or cardiac complaints either prior to or after the fall. Her hemoglobin is 10.7 her white count is elevated at 15 other laboratory studies are pending at the time of this dictation. Patient's EKG shows a sinus rhythm with nonspecific T wave abnormalities in the lateral precordial and limb leads there is however no prior for comparison. Patient was admitted to a medical monitored bed and underwent Left hip hemiarthroplasty on 07/16/18. 07/17/18: Vanita states that she is feeling well today. She does not remember that there was a fracture of her left hip or that it was repaired yesterday. She is very pleasant but very very confused and cannot contribute substantial historical or detailed input into her medical history. She denies having pain and this is verified by her nurse. She will begin physical therapy and have her Yoon catheter removed today and discharge planning is working on a post hospital skilled facility for her continued recovery. Reason For Visit: LEFT HIP FRACTURE Physical Exam Vital Signs: Temp Pulse Resp BP Pulse Ox 100.2 F 94 18 120/66 99 07/17/18 11:13 07/17/18 11:13 07/17/18 11:13 07/17/18 11:13 07/17/18 11:13 Intake & Output 07/15/18 07/16/18 07/17/18 23:59 23:59 23:59 Intake Total 2952 5632 1440 Output Total 2900 4740 1600 Balance 52 892 -160 Weight 51 kg 56.7 kg 54.1 kg General appearance: PRESENT: no acute distress, cooperative, well-developed, well-nourished Head exam: PRESENT: atraumatic Eye exam: ABSENT: conjunctival injection, scleral icterus Ear exam: PRESENT: normal external ear exam. ABSENT: drainage Mouth exam: PRESENT: moist, tongue midline Neck exam: ABSENT: thyromegaly, tracheal deviation Respiratory exam: PRESENT: clear to auscultation arnold, symmetrical, unlabored Cardiovascular exam: PRESENT: RRR, systolic murmur - 2/6. ABSENT: clicks, gallop, rubs Vascular exam: PRESENT: normal capillary refill. ABSENT: pallor GI/Abdominal exam: PRESENT: normal bowel sounds, soft Rectal exam: PRESENT: deferred Extremities exam: ABSENT: joint swelling, pedal edema Musculoskeletal exam: ABSENT: ambulatory, deformity, dislocation Neurological exam: PRESENT: alert, awake, oriented to person. ABSENT: oriented to place, oriented to time, oriented to situation Psychiatric exam: PRESENT: appropriate affect, normal mood Skin exam: ABSENT: jaundice, rash, urticaria Results Laboratory Results: 07/17/18 04:41 07/17/18 04:41 07/16/18 07/16/18 07/17/18 09:22 21:25 04:41 WBC 11.2 H 12.1 H RBC 3.93 4.00 Hgb 11.7 L D 12.0 Hct 33.9 L 34.4 L MCV 86 D 86 MCH 29.8 30.0 MCHC 34.7 34.9 RDW 16.4 H 16.6 H Plt Count 119 L 116 L Seg Neutrophils % 74.9 Lymphocytes % 11.1 L Monocytes % 12.9 Eosinophils % 0.8 Basophils % 0.3 Absolute Neutrophils 9.0 H Absolute Lymphocytes 1.3 Absolute Monocytes 1.6 H Absolute Eosinophils 0.1 Absolute Basophils 0.0 Sodium Potassium Chloride Carbon Dioxide Anion Gap BUN Creatinine Est GFR ( Amer) Est GFR (Non-Af Amer) Glucose Calcium Blood Type A POSITIVE Antibody Screen NEGATIVE 07/17/18 04:41 WBC RBC Hgb Hct MCV MCH MCHC RDW Plt Count Seg Neutrophils % Lymphocytes % Monocytes % Eosinophils % Basophils % Absolute Neutrophils Absolute Lymphocytes Absolute Monocytes Absolute Eosinophils Absolute Basophils Sodium 131.1 L Potassium 4.4 Chloride 95 L Carbon Dioxide 25 Anion Gap 11 BUN 18 Creatinine 1.14 Est GFR ( Amer) 56 L Est GFR (Non-Af Amer) 46 L Glucose 143 H Calcium 8.8 Blood Type Antibody Screen 07/15/18 16:31 Yoon Catheter Urine Culture - Final NO GROWTH 2 DAYS 07/14/18 07/15/18 07/15/18 21:45 02:25 02:25 Creatine Kinase 108 CK-MB (CK-2) Troponin I 0.076 0.096 07/15/18 07/15/18 07/15/18 02:25 05:59 13:35 Creatine Kinase 145 H CK-MB (CK-2) 1.39 Troponin I Cancelled 0.097 07/15/18 07/15/18 07/15/18 13:35 17:15 17:15 Creatine Kinase 110 CK-MB (CK-2) 1.04 0.65 Troponin I 0.096 0.105 Impressions: Hip X-Ray 07/14/18 16:09 IMPRESSION: Left femoral neck fracture with approximately 2.4 cm of impaction and 1 cm lateral displacement. Chest X-Ray 07/14/18 17:07 IMPRESSION: No pneumothorax. Small pleural effusion versus Chronic scarring in the right lung base. Emphysema and chronic interstitial changes. No consolidation. Pelvis X-Ray 07/16/18 00:00 IMPRESSION: Left hip arthroplasty. Refer to operative note for further information. Assessment & Plan - Diagnosis (1) Subcapital fracture of neck of left femur Qualifiers: Encounter type: initial encounter Fracture type: closed Qualified Code(s) : S72.012A - Unspecified intracapsular fracture of left femur, initial encounter for closed fracture Is this a current diagnosis for this admission?: Yes Plan: This was repaired by Dr. Gunner Sin with a left hip hemiarthroplasty on 2017. She has thus far had an uncomplicated postoperative course. (2) CAD (coronary artery disease) Qualifiers: Coronary Disease-Associated Artery/Lesion type: unspecified vessel or lesion type [place] vs. transplanted heart: [place] heart Associated angina: angina presence unspecified Qualified Code(s): I25.10 - Atherosclerotic heart disease of [place] coronary artery without angina pectoris Is this a current diagnosis for this admission?: Yes Plan: Patient's coronary artery disease has been stable throughout her hospitalization and she has been continued on her current prehospitalization regiment throughout her hospital course. (3) Diabetes mellitus type 2 in nonobese Is this a current diagnosis for this admission?: Yes Plan: Her hemoglobin A1c was 7.2 suggesting reasonably good control. She was therefore maintained on her prehospital therapeutic regimen and a diabetic diet throughout her postoperative course when she was allowed to resume oral intake. (4) Personal history of cerebrovascular accident with current residual effects Is this a current diagnosis for this admission?: Yes Plan: Vanita has a history of seizures following her cerebrovascular accident. She was being maintained on Keppra prior to her hospitalization and that has been continued throughout her hospitalization without incident or consequence. - Time Time Spent with patient: 35 or more minutes Medications reviewed and adjusted accordingly: Yes Anticipated discharge: SNF
[2018-07-17] MEDS: APIXABAN 2.5 MG TABLET PO SCH (18:11)
[2018-07-17] MEDS: ATORVASTATIN CALCIUM 20 MG TABLET PO SCH (21:44)
[2018-07-18] MEDS: ACETAMINOPHEN 325 MG TABLET PO PRN ×2 (04:04→22:05)
[2018-07-18] MEDS: LANSOPRAZOLE 30 MG TAB.RAP.DR PO SCH (05:31)
--- NOTE | 2018-07-18 07:03 | PDOC PROGRESS REPORT ---
Subjective Progress Note for:: 07/18/18 Reason For Visit: LEFT HIP FRACTURE 78-year-old black female postop day 2 status post left hemiarthroplasty for femoral neck fracture. Patient continues to be confused but appears to be quite comfortable. Physical Exam Vital Signs: Temp Pulse Resp BP Pulse Ox 37.7 C 88 16 148/48 H 98 07/18/18 05:30 07/18/18 03:50 07/18/18 03:50 07/18/18 03:50 07/18/18 03:50 Intake & Output 07/17/18 07/18/18 07/19/18 06:59 06:59 06:59 Intake Total 5084 2496 Output Total 5290 600 Balance -206 1896 Weight 54.1 kg 57.4 kg General appearance: PRESENT: no acute distress Musculoskeletal exam: PRESENT: other - Leg lengths are equal. Left hip dressing is clean dry and intact. Results Laboratory Results: 07/17/18 04:41 07/17/18 04:41 07/16/18 09:22 Blood Type A POSITIVE Antibody Screen NEGATIVE 07/15/18 16:31 Yoon Catheter Urine Culture - Final NO GROWTH 2 DAYS 07/14/18 07/15/18 07/15/18 21:45 02:25 02:25 Creatine Kinase 108 CK-MB (CK-2) Troponin I 0.076 0.096 07/15/18 07/15/18 07/15/18 02:25 05:59 13:35 Creatine Kinase 145 H CK-MB (CK-2) 1.39 Troponin I Cancelled 0.097 07/15/18 07/15/18 07/15/18 13:35 17:15 17:15 Creatine Kinase 110 CK-MB (CK-2) 1.04 0.65 Troponin I 0.096 0.105 Impressions: Hip X-Ray 07/14/18 16:09 IMPRESSION: Left femoral neck fracture with approximately 2.4 cm of impaction and 1 cm lateral displacement. Chest X-Ray 07/14/18 17:07 IMPRESSION: No pneumothorax. Small pleural effusion versus Chronic scarring in the right lung base. Emphysema and chronic interstitial changes. No consolidation. Pelvis X-Ray 07/16/18 00:00 IMPRESSION: Left hip arthroplasty. Refer to operative note for further information. Status: Imported from P[facility] Assessment & Plan - Diagnosis (1) Closed intertrochanteric fracture of left hip Qualifiers: Encounter type: initial encounter Is this a current diagnosis for this admission?: Yes Plan: Status post hemiarthroplasty with limited progress with physical therapy yesterday. Dementia probably plays a role in terms of the patient's rehabilitation. Anticipate the need for residential facility placement. - Time Time Spent with patient: 15-24 minutes Anticipated discharge: SNF Within: when bed available
[2018-07-18] MEDS: LEVETIRACETAM 500 MG TABLET PO SCH ×2 (09:59→22:05)
[2018-07-18] MEDS: VALSARTAN 160 MG TABLET PO SCH (09:59)
[2018-07-18] MEDS: ASPIRIN 81 MG TABLET, CHEWABLE PO SCH (09:59)
[2018-07-18] MEDS: AMLODIPINE BESYLATE 10 MG TABLET PO SCH (09:59)
[2018-07-18] MEDS: HYDROCODONE/ACETAMINOPHEN 5-325 MG TABLET PO PRN (09:59)
[2018-07-18] MEDS: APIXABAN 2.5 MG TABLET PO SCH ×2 (09:59→17:57)
[2018-07-18] MEDS: MIRTAZAPINE 15 MG TABLET PO SCH (09:59)
[2018-07-18] MEDS: INSULIN DETEMIR 100 UNIT/ML 3 ML PEN SUBCUT SCH (10:00)
[2018-07-18 10:30] LABS: HEMATOCRIT 32.2 % (36.0-47.0); MEAN CORPUSCULAR HEMOGLOBIN 29.6 pg (27.0-33.4); MEAN CORPUSCULAR HGB CONC 34.1 g/dL (32.0-36.0); MEAN CORPUSCULAR VOLUME 87 fl (80-97); PLATELET COUNT 140 10^3/uL (150-450); RED BLOOD COUNT 3.71 10^6/uL (3.72-5.28); RED CELL DISTRIBUTION WIDTH 16.2 % (11.5-14.0); WHITE BLOOD COUNT 11.5 10^3/uL (4.0-10.5)
[2018-07-18 11:16] LABS: ANION GAP 8 (5-19); BLOOD UREA NITROGEN 21 mg/dL (7-20); CALCIUM 8.2 mg/dL (8.4-10.2); CARBON DIOXIDE 28 mmol/L (22-30); CHLORIDE 92 mmol/L (98-107); GLUCOSE 149 mg/dL (75-110); SODIUM 128.1 mmol/L (137-145)
[2018-07-18] MEDS: INSULIN REG, HUMAN 100 UNIT/ML 3 ML VIAL (PYX) SUBCUT PRN (12:57)
--- NOTE | 2018-07-18 18:31 | PDOC PROGRESS REPORT ---
Subjective Progress Note for:: 07/18/18 Subjective:: VANITA BRYANT is a 78 year old female, visiting from [place], who presented to the emergency room where an x-ray revealed she had an femoral neck fracture of her left hip. According to her daughter the patient got up to use the bathroom became entangled in her blanket and fell to the floor. She was found with the blanket wrapped around her feet she was complaining of pain in her left hip. Dr. Ariana Morel was contacted and requested hospitalist admit the patient and consult him as she has a complicated medical history with coronary artery disease with a prior myocardial infarction in 2012. She underwent bypass at that time. She is followed closely by her commercial leasing agent in [place]. In 2013 she was diagnosed with lung cancer and had a lobe resection on the right followed by chemotherapy. She has been disease free ever since. In September 2017 patient had a CVA and was found to have a left carotid stenosis. She apparently had old strokes identified at that time and underwent an endarterectomy in November 2017. In September she was also noted to have a brief episode of paroxysmal atrial fibrillation. She was started on Eliquis and had been on it for over 6 months. In May her commercial leasing agent did a brusher warp found no episodes of paroxysms of atrial fibrillation and discontinue the Eliquis and placed her on aspirin 81 mg. Patient suffers from hypertension diabetes hyperlipidemia she did have a seizure in September 2017 which they felt was secondary to her stroke she has been on Keppra since and has had no more reported seizures. She has not had any chest pain or cardiac complaints either prior to or after the fall. Her hemoglobin is 10.7 her white count is elevated at 15 other laboratory studies are pending at the time of this dictation. Patient's EKG shows a sinus rhythm with nonspecific T wave abnormalities in the lateral precordial and limb leads there is however no prior for comparison. Patient was admitted to a medical monitored bed and underwent Left hip hemiarthroplasty on 07/16/18. 07/17/18: Vanita states that she is feeling well today. She does not remember that there was a fracture of her left hip or that it was repaired yesterday. She is very pleasant but very very confused and cannot contribute substantial historical or detailed input into her medical history. She denies having pain and this is verified by her nurse. She will begin physical therapy and have her Yoon catheter removed today and discharge planning is working on a post hospital skilled facility for her continued recovery. 07/18/18: Vanita is feeling well again today she has been working with physical therapy and has been standing with a walker and putting some light weight on her left foot. She is having very minimal pain and has not required pain medication. Her Yoon catheter has been removed and she has been passing urine without difficulty. She continues to enjoy her diet and has not experienced nausea or vomiting. She will be reevaluated by acute rehab for possible admission there within 24-48 hours. Reason For Visit: LEFT HIP FRACTURE Physical Exam Vital Signs: Temp Pulse Resp BP Pulse Ox 98.8 F 81 18 117/53 L 100 07/18/18 15:19 07/18/18 15:19 07/18/18 15:19 07/18/18 15:19 07/18/18 15:19 Intake & Output 07/16/18 07/17/18 07/18/18 23:59 23:59 23:59 Intake Total 5632 2936 532 Output Total 4740 1900 500 Balance 892 1036 32 Weight 56.7 kg 54.1 kg 57.4 kg General appearance: PRESENT: no acute distress, cooperative, well-developed, well-nourished Head exam: PRESENT: atraumatic, normocephalic Eye exam: ABSENT: conjunctival injection, scleral icterus Ear exam: PRESENT: normal external ear exam. ABSENT: bleeding Mouth exam: PRESENT: neck supple, tongue midline Neck exam: ABSENT: thyromegaly, tracheal deviation Respiratory exam: PRESENT: clear to auscultation arnold, symmetrical, unlabored Cardiovascular exam: PRESENT: RRR. ABSENT: clicks, gallop, rubs Vascular exam: PRESENT: normal capillary refill. ABSENT: pallor GI/Abdominal exam: PRESENT: normal bowel sounds, soft Rectal exam: PRESENT: deferred Extremities exam: ABSENT: joint swelling, pedal edema Musculoskeletal exam: PRESENT: other - Decreased range of motion in the left hip postoperative day #2. ABSENT: deformity, dislocation Neurological exam: PRESENT: alert, oriented to person, oriented to place, CN II- XII grossly intact. ABSENT: oriented to time, oriented to situation, motor sensory deficit Psychiatric exam: PRESENT: appropriate affect, normal mood Skin exam: ABSENT: jaundice, rash, urticaria Results Laboratory Results: 07/18/18 09:58 07/18/18 09:58 07/18/18 07/18/18 07/18/18 09:58 09:58 09:58 WBC 11.5 H RBC 3.71 L Hgb 11.0 L Hct 32.2 L MCV 87 MCH 29.6 MCHC 34.1 RDW 16.2 H Plt Count 140 L Sodium 128.1 L Potassium 4.0 Chloride 92 L Carbon Dioxide 28 Anion Gap 8 BUN 21 H Creatinine 1.22 Est GFR ( Amer) 52 L Est GFR (Non-Af Amer) 43 L Glucose 149 H Calcium 8.2 L Magnesium 1.6 TSH 3.17 07/14/18 07/15/18 07/15/18 21:45 02:25 02:25 Creatine Kinase 108 CK-MB (CK-2) Troponin I 0.076 0.096 07/15/18 07/15/18 07/15/18 02:25 05:59 13:35 Creatine Kinase 145 H CK-MB (CK-2) 1.39 Troponin I Cancelled 0.097 07/15/18 07/15/18 07/15/18 13:35 17:15 17:15 Creatine Kinase 110 CK-MB (CK-2) 1.04 0.65 Troponin I 0.096 0.105 Impressions: Hip X-Ray 07/14/18 16:09 IMPRESSION: Left femoral neck fracture with approximately 2.4 cm of impaction and 1 cm lateral displacement. Chest X-Ray 07/14/18 17:07 IMPRESSION: No pneumothorax. Small pleural effusion versus Chronic scarring in the right lung base. Emphysema and chronic interstitial changes. No consolidation. Pelvis X-Ray 07/16/18 00:00 IMPRESSION: Left hip arthroplasty. Refer to operative note for further information. Assessment & Plan - Diagnosis (1) Subcapital fracture of neck of left femur Qualifiers: Encounter type: initial encounter Fracture type: closed Qualified Code(s) : S72.012A - Unspecified intracapsular fracture of left femur, initial encounter for closed fracture Is this a current diagnosis for this admission?: Yes Plan: 07/17/18: This was repaired by Dr. Gunner Sin with a left hip hemiarthroplasty on 2017. She has thus far had an uncomplicated postoperative course. 07/18/18: No significant clinical changes for this problem. (2) CAD (coronary artery disease) Qualifiers: Coronary Disease-Associated Artery/Lesion type: unspecified vessel or lesion type [place] vs. transplanted heart: [place] heart Associated angina: angina presence unspecified Qualified Code(s): I25.10 - Atherosclerotic heart disease of [place] coronary artery without angina pectoris Is this a current diagnosis for this admission?: Yes Plan: 07/17/18: Patient's coronary artery disease has been stable throughout her hospitalization and she has been continued on her current prehospitalization regiment throughout her hospital course. 07/18/18: No significant clinical changes for this problem. (3) Diabetes mellitus type 2 in nonobese Is this a current diagnosis for this admission?: Yes Plan: 07/17/18: Her hemoglobin A1c was 7.2 suggesting reasonably good control. She was therefore maintained on her prehospital therapeutic regimen and a diabetic diet throughout her postoperative course when she was allowed to resume oral intake. 07/18/18: No significant clinical changes for this problem (4) Personal history of cerebrovascular accident with current residual effects Is this a current diagnosis for this admission?: Yes Plan: 07/17/18: Vanita has a history of seizures following her cerebrovascular accident. She was being maintained on Keppra prior to her hospitalization and that has been continued throughout her hospitalization without incident or consequence. 07/18/18: No significant clinical changes for this problem. - Time Time Spent with patient: 25-34 minutes Anticipated discharge: SNF, Acute Rehab Within: within 48 hours, when bed available
[2018-07-18] MEDS: ATORVASTATIN CALCIUM 20 MG TABLET PO SCH (22:05)
[2018-07-19] MEDS: LANSOPRAZOLE 30 MG TAB.RAP.DR PO SCH (05:16)
[2018-07-19 05:35] LABS: CHOLESTEROL 90.56 mg/dL (0-200); TRIGLYCERIDES 58 mg/dL (<150)
[2018-07-19 05:48] LABS: DIRECT LDL < 30 mg/dL (<100)
[2018-07-19] MEDS: LEVETIRACETAM 500 MG TABLET PO SCH ×2 (10:09→21:26)
[2018-07-19] MEDS: AMLODIPINE BESYLATE 10 MG TABLET PO SCH (10:09)
[2018-07-19] MEDS: APIXABAN 2.5 MG TABLET PO SCH ×2 (10:09→17:03)
[2018-07-19] MEDS: VALSARTAN 160 MG TABLET PO SCH (10:10)
[2018-07-19] MEDS: ASPIRIN 81 MG TABLET, CHEWABLE PO SCH (10:10)
[2018-07-19] MEDS: MIRTAZAPINE 15 MG TABLET PO SCH (10:10)
--- NOTE | 2018-07-19 10:13 | PDOC PROGRESS REPORT ---
Subjective Progress Note for:: 07/19/18 Subjective:: Brief HPI: 78-year-old female with left hip fracture status post left hip hemiarthroplasty. Chief complaint: "I cannot walk." Today, the patient was seen and examined with her daughter at bedside. Her pain is well controlled, but she does admit to difficulty with ambulation. Otherwise, she has no complaints. Per therapy notes, the patient currently requires minimum assistance of 2 people for bed mobility, minimum assistance of 2 people for transfers, moderate assistance of 2 people for sidestepping 4 steps x 2, moderate assistance for upper body dressing, and dependent assistance for lower body dressing. Reason For Visit: LEFT HIP FRACTURE Physical Exam Vital Signs: Temp Pulse Resp BP Pulse Ox 97.6 F 73 16 141/48 H 100 07/19/18 07:21 07/19/18 07:21 07/19/18 07:21 07/19/18 07:21 07/19/18 09:59 Intake & Output 07/18/18 07/19/18 07/20/18 06:59 06:59 06:59 Intake Total 2496 849 Output Total 600 500 Balance 1896 349 Weight 57.4 kg 54.1 kg Additional comments: General: Awake and Alert. No acute distress. Resting comfortably in bed with her daughter at bedside. Head: Normocephalic. Atraumatic. Eyes: Pupils equal, round, and minimally reactive to light. EOMI. Sclera white. Ears: No drainage noted. Nose: Nares normal & without exudate. Oropharynx: Moist mucous membranes. Neck: Supple movements. Cardiovascular: Regular rate & rhythm. No murmurs, rubs, or gallops appreciated. Pulmonary: Lungs clear to auscultation bilaterally. No increased work of breathing. Gastrointestinal: Abdomen soft, non-tender, non-distended. Normoactive bowel sounds. Skin: Texture and turgor normal. Warm and dry. Left hip surgical incision is dressed, clean, dry, and intact. Psychiatric: She is pleasant and oriented to location, self, and date with verbal cues. Extremities: Status post left hip hemiarthroplasty. Arthritic changes of the hands and feet are noted. Neurological: CN III-XII grossly intact. Sensation to light touch is grossly intact. Tone is normal. Speech is fluent with good content and without dysarthria. Muscle Strength: Full 5/5 strength in all major muscle groups of the 4 extremities, except 1/5 strength of left hip flexors and knee flexors/extensors. Results Laboratory Results: 07/18/18 09:58 07/18/18 09:58 07/18/18 07/18/18 07/18/18 09:58 09:58 09:58 WBC 11.5 H RBC 3.71 L Hgb 11.0 L Hct 32.2 L MCV 87 MCH 29.6 MCHC 34.1 RDW 16.2 H Plt Count 140 L Sodium 128.1 L Potassium 4.0 Chloride 92 L Carbon Dioxide 28 Anion Gap 8 BUN 21 H Creatinine 1.22 Est GFR ( Amer) 52 L Est GFR (Non-Af Amer) 43 L Glucose 149 H Calcium 8.2 L Magnesium 1.6 Triglycerides Cholesterol LDL Cholesterol Direct VLDL Cholesterol HDL Cholesterol TSH 3.17 07/19/18 04:50 WBC RBC Hgb Hct MCV MCH MCHC RDW Plt Count Sodium Potassium Chloride Carbon Dioxide Anion Gap BUN Creatinine Est GFR ( Amer) Est GFR (Non-Af Amer) Glucose Calcium Magnesium Triglycerides 58 Cholesterol 90.56 LDL Cholesterol Direct < 30 VLDL Cholesterol 12.0 HDL Cholesterol 45 TSH 07/14/18 07/15/18 07/15/18 21:45 02:25 02:25 Creatine Kinase 108 CK-MB (CK-2) Troponin I 0.076 0.096 07/15/18 07/15/18 07/15/18 02:25 05:59 13:35 Creatine Kinase 145 H CK-MB (CK-2) 1.39 Troponin I Cancelled 0.097 07/15/18 07/15/18 07/15/18 13:35 17:15 17:15 Creatine Kinase 110 CK-MB (CK-2) 1.04 0.65 Troponin I 0.096 0.105 Impressions: Hip X-Ray 07/14/18 16:09 IMPRESSION: Left femoral neck fracture with approximately 2.4 cm of impaction and 1 cm lateral displacement. Chest X-Ray 07/14/18 17:07 IMPRESSION: No pneumothorax. Small pleural effusion versus Chronic scarring in the right lung base. Emphysema and chronic interstitial changes. No consolidation. Pelvis X-Ray 07/16/18 00:00 IMPRESSION: Left hip arthroplasty. Refer to operative note for further information. Assessment & Plan - Plan Summary Plan Summary: Assessment and Plan: 78-year-old female with left hip fracture status post left hip hemiarthroplasty. 1. Gait and ADL Dysfunction secondary to left hip fracture - Continue PT and OT to maximize mobility, safety, endurance, and self-care. 2. Left hip fracture - Status post left hip hemiarthroplasty by Dr. Gunner Sin on 07/16/2018 - Weightbearing as tolerated on the left lower extremity with posterior hip precautions - Pain control and DVT prophylaxis per orthopedic surgery 3. Anemia - Secondary to acute blood loss from recent fracture and surgery - Status post transfusion of 2 units of packed red blood cells - Continue to follow H&H closely and transfuse as necessary 4. Diabetes mellitus type 2 - Continue blood sugar management per hospitalist medicine 5. History of CVA and dementia - Continue antiplatelet and statin - Complicating comorbidity in the patient's rehabilitation course 6. Disposition - Based on the patient's diagnosis, medical co-morbidities, and current functional status, she is not a candidate for Acute Inpatient Rehabilitation as she is unable to tolerate and benefit from 3 hours/day of intensive therapies in at least 2 disciplines. The patient's dementia will prevent her from making significant functional gains in a relatively short period of time. The patient would benefit from a prolonged, less intensive rehabilitation course that can be provided at the subacute level. This was discussed with the patient's daughter at bedside, who agrees with the recommendation. All questions were answered. This case was discussed with the patient's acute care therapists and brand planner. Thank you for allowing us to participate in the care of this patient. Please call with any questions. A total of 25 minutes was spent on [id number] communication with the patient and coordination of care.
[2018-07-19] MEDS: INSULIN DETEMIR 100 UNIT/ML 3 ML PEN SUBCUT SCH (10:15)
[2018-07-19 10:17] LABS: HEMATOCRIT 35.9 % (36.0-47.0); HEMOGLOBIN 12.1 g/dL (12.0-15.5); MEAN CORPUSCULAR HEMOGLOBIN 29.8 pg (27.0-33.4); MEAN CORPUSCULAR HGB CONC 33.8 g/dL (32.0-36.0); MEAN CORPUSCULAR VOLUME 88 fl (80-97); PLATELET COUNT 182 10^3/uL (150-450); RED BLOOD COUNT 4.07 10^6/uL (3.72-5.28); RED CELL DISTRIBUTION WIDTH 15.9 % (11.5-14.0); WHITE BLOOD COUNT 11.2 10^3/uL (4.0-10.5)
[2018-07-19 10:46] LABS: ANION GAP 11 (5-19); BLOOD UREA NITROGEN 23 mg/dL (7-20); CALCIUM 8.8 mg/dL (8.4-10.2); CARBON DIOXIDE 29 mmol/L (22-30); CHLORIDE 93 mmol/L (98-107); GLUCOSE 97 mg/dL (75-110); POTASSIUM 4.3 mmol/L (3.6-5.0); SODIUM 133.1 mmol/L (137-145)
--- NOTE | 2018-07-19 14:15 | PDOC PROGRESS REPORT ---
Subjective Progress Note for:: 07/19/18 Subjective:: VANITA BRYANT is a 78 year old female, visiting from [place], who presented to the emergency room where an x-ray revealed she had an femoral neck fracture of her left hip. According to her daughter the patient got up to use the bathroom became entangled in her blanket and fell to the floor. She was found with the blanket wrapped around her feet she was complaining of pain in her left hip. Dr. Ariana Morel was contacted and requested hospitalist admit the patient and consult him as she has a complicated medical history with coronary artery disease with a prior myocardial infarction in 2012. She underwent bypass at that time. She is followed closely by her band manager in [place]. In 2013 she was diagnosed with lung cancer and had a lobe resection on the right followed by chemotherapy. She has been disease free ever since. In September 2017 patient had a CVA and was found to have a left carotid stenosis. She apparently had old strokes identified at that time and underwent an endarterectomy in November 2017. In September she was also noted to have a brief episode of paroxysmal atrial fibrillation. She was started on Eliquis and had been on it for over 6 months. In May her band manager did a child monitor found no episodes of paroxysms of atrial fibrillation and discontinue the Eliquis and placed her on aspirin 81 mg. Patient suffers from hypertension diabetes hyperlipidemia she did have a seizure in September 2017 which they felt was secondary to her stroke she has been on Keppra since and has had no more reported seizures. She has not had any chest pain or cardiac complaints either prior to or after the fall. Her hemoglobin is 10.7 her white count is elevated at 15 other laboratory studies are pending at the time of this dictation. Patient's EKG shows a sinus rhythm with nonspecific T wave abnormalities in the lateral precordial and limb leads there is however no prior for comparison. Patient was admitted to a medical monitored bed and underwent Left hip hemiarthroplasty on 07/16/18. 07/17/18: Vanita states that she is feeling well today. She does not remember that there was a fracture of her left hip or that it was repaired yesterday. She is very pleasant but very very confused and cannot contribute substantial historical or detailed input into her medical history. She denies having pain and this is verified by her nurse. She will begin physical therapy and have her Yoon catheter removed today and discharge planning is working on a post hospital skilled facility for her continued recovery. 07/18/18: Vanita is feeling well again today she has been working with physical therapy and has been standing with a walker and putting some light weight on her left foot. She is having very minimal pain and has not required pain medication. Her Yoon catheter has been removed and she has been passing urine without difficulty. She continues to enjoy her diet and has not experienced nausea or vomiting. She will be reevaluated by acute rehab for possible admission there within 24-48 hours. 07/19/18: Vanita again is smiling and states she feels very well. She continues to make progress with physical therapy initiating weightbearing on her left lower extremity. She has been eating her diet well and has not had any nausea or vomiting. She does not complain of any pain in her chest abdomen or even in her left hip. She was reevaluated by rehab who felt that she would be most appropriately placed in a nursing home facility due to her mild dementia which would likely interfere with intensive rehabilitation therapy. This is discussed with the patient and her daughter and it will be perfectly happy to go to [facility] for Vanita's rehab. Reason For Visit: LEFT HIP FRACTURE Physical Exam Vital Signs: Temp Pulse Resp BP Pulse Ox 98.4 F 95 18 151/61 H 100 07/19/18 11:56 07/19/18 11:56 07/19/18 11:56 07/19/18 11:56 07/19/18 11:56 Intake & Output 07/17/18 07/18/18 07/19/18 23:59 23:59 23:59 Intake Total 2936 532 553 Output Total 1900 500 Balance 1036 32 553 Weight 54.1 kg 57.4 kg 54.1 kg General appearance: PRESENT: no acute distress, cooperative, well-developed, well-nourished Head exam: PRESENT: atraumatic, normocephalic Eye exam: PRESENT: conjunctiva pink. ABSENT: conjunctiva pale, scleral icterus Ear exam: PRESENT: normal external ear exam. ABSENT: bleeding Mouth exam: PRESENT: neck supple, tongue midline Neck exam: ABSENT: thyromegaly, tracheal deviation Respiratory exam: PRESENT: clear to auscultation arnold, symmetrical, unlabored Cardiovascular exam: PRESENT: RRR. ABSENT: clicks, gallop, rubs Vascular exam: PRESENT: normal capillary refill. ABSENT: pallor GI/Abdominal exam: PRESENT: normal bowel sounds, soft Rectal exam: PRESENT: deferred Extremities exam: ABSENT: joint swelling, pedal edema Musculoskeletal exam: ABSENT: deformity, dislocation Neurological exam: PRESENT: alert, oriented to person, CN II-XII grossly intact. ABSENT: oriented to place, oriented to time, oriented to situation, motor sensory deficit Psychiatric exam: PRESENT: appropriate affect, normal mood, other - Very pleasantly confused/demented Skin exam: ABSENT: jaundice, rash, urticaria Results Laboratory Results: 07/19/18 09:43 07/19/18 09:43 07/19/18 07/19/18 07/19/18 04:50 09:43 09:43 WBC 11.2 H RBC 4.07 Hgb 12.1 Hct 35.9 L MCV 88 MCH 29.8 MCHC 33.8 RDW 15.9 H Plt Count 182 Sodium 133.1 L Potassium 4.3 Chloride 93 L Carbon Dioxide 29 Anion Gap 11 BUN 23 H Creatinine 1.16 Est GFR ( Amer) 55 L Est GFR (Non-Af Amer) 45 L Glucose 97 Calcium 8.8 Magnesium 2.0 Triglycerides 58 Cholesterol 90.56 LDL Cholesterol Direct < 30 VLDL Cholesterol 12.0 HDL Cholesterol 45 07/14/18 07/15/18 07/15/18 21:45 02:25 02:25 Creatine Kinase 108 CK-MB (CK-2) Troponin I 0.076 0.096 07/15/18 07/15/18 07/15/18 02:25 05:59 13:35 Creatine Kinase 145 H CK-MB (CK-2) 1.39 Troponin I Cancelled 0.097 07/15/18 07/15/18 07/15/18 13:35 17:15 17:15 Creatine Kinase 110 CK-MB (CK-2) 1.04 0.65 Troponin I 0.096 0.105 Impressions: Hip X-Ray 07/14/18 16:09 IMPRESSION: Left femoral neck fracture with approximately 2.4 cm of impaction and 1 cm lateral displacement. Chest X-Ray 07/14/18 17:07 IMPRESSION: No pneumothorax. Small pleural effusion versus Chronic scarring in the right lung base. Emphysema and chronic interstitial changes. No consolidation. Pelvis X-Ray 07/16/18 00:00 IMPRESSION: Left hip arthroplasty. Refer to operative note for further information. Assessment & Plan - Diagnosis (1) Subcapital fracture of neck of left femur Qualifiers: Encounter type: initial encounter Fracture type: closed Qualified Code(s) : S72.012A - Unspecified intracapsular fracture of left femur, initial encounter for closed fracture Is this a current diagnosis for this admission?: Yes Plan: 07/17/18: This was repaired by Dr. Gunner Sin with a left hip hemiarthroplasty on 2017. She has thus far had an uncomplicated postoperative course. 07/18/18: No significant clinical changes for this problem. 07/19/18: Vanita is doing well postoperatively and is ready for discharge from a surgical standpoint this will be accomplished tomorrow when she will go to [facility] where she has been accepted and given a bed offer. (2) CAD (coronary artery disease) Qualifiers: Coronary Disease-Associated Artery/Lesion type: unspecified vessel or lesion type [place] vs. transplanted heart: [place] heart Associated angina: angina presence unspecified Qualified Code(s): I25.10 - Atherosclerotic heart disease of [place] coronary artery without angina pectoris Is this a current diagnosis for this admission?: Yes Plan: 07/17/18: Patient's coronary artery disease has been stable throughout her hospitalization and she has been continued on her current prehospitalization regiment throughout her hospital course. 07/18/18: No significant clinical changes for this problem. (3) Diabetes mellitus type 2 in nonobese Is this a current diagnosis for this admission?: Yes Plan: 07/17/18: Her hemoglobin A1c was 7.2 suggesting reasonably good control. She was therefore maintained on her prehospital therapeutic regimen and a diabetic diet throughout her postoperative course when she was allowed to resume oral intake. 07/18/18: No significant clinical changes for this problem (4) Personal history of cerebrovascular accident with current residual effects Is this a current diagnosis for this admission?: Yes Plan: 07/17/18: Vanita has a history of seizures following her cerebrovascular accident. She was being maintained on Keppra prior to her hospitalization and that has been continued throughout her hospitalization without incident or consequence. 07/18/18: No significant clinical changes for this problem. - Time Time Spent with patient: 25-34 minutes Anticipated discharge: SNF Within: within 24 hours
[2018-07-19] MEDS: INSULIN REG, HUMAN 100 UNIT/ML 3 ML VIAL (PYX) SUBCUT PRN (17:03)
[2018-07-19] MEDS: HYDROCODONE/ACETAMINOPHEN 5-325 MG TABLET PO PRN (20:14)
[2018-07-19] MEDS: ATORVASTATIN CALCIUM 20 MG TABLET PO SCH (21:26)
[2018-07-20] MEDS: ACETAMINOPHEN 325 MG TABLET PO PRN (00:45)
[2018-07-20] MEDS: LANSOPRAZOLE 30 MG TAB.RAP.DR PO SCH (05:19)
[2018-07-20 09:36] LABS: HEMATOCRIT 29.8 % (36.0-47.0); HEMOGLOBIN 10.2 g/dL (12.0-15.5); MEAN CORPUSCULAR HEMOGLOBIN 29.9 pg (27.0-33.4); MEAN CORPUSCULAR HGB CONC 34.2 g/dL (32.0-36.0); MEAN CORPUSCULAR VOLUME 88 fl (80-97); PLATELET COUNT 185 10^3/uL (150-450); RED BLOOD COUNT 3.41 10^6/uL (3.72-5.28); RED CELL DISTRIBUTION WIDTH 15.8 % (11.5-14.0); WHITE BLOOD COUNT 7.8 10^3/uL (4.0-10.5)
[2018-07-20] MEDS: APIXABAN 2.5 MG TABLET PO SCH ×2 (09:44→17:18)
[2018-07-20] MEDS: MIRTAZAPINE 15 MG TABLET PO SCH (09:44)
[2018-07-20] MEDS: LEVETIRACETAM 500 MG TABLET PO SCH (09:44)
[2018-07-20] MEDS: AMLODIPINE BESYLATE 10 MG TABLET PO SCH (09:44)
[2018-07-20] MEDS: INSULIN DETEMIR 100 UNIT/ML 3 ML PEN SUBCUT SCH (09:44)
[2018-07-20] MEDS: ASPIRIN 81 MG TABLET, CHEWABLE PO SCH (09:44)
[2018-07-20] MEDS: VALSARTAN 160 MG TABLET PO SCH (09:44)
[2018-07-20 09:54] LABS: ANION GAP 9 (5-19); BLOOD UREA NITROGEN 28 mg/dL (7-20); CALCIUM 8.6 mg/dL (8.4-10.2); CARBON DIOXIDE 29 mmol/L (22-30); CHLORIDE 93 mmol/L (98-107); GLUCOSE 116 mg/dL (75-110); POTASSIUM 4.5 mmol/L (3.6-5.0); SODIUM 131.1 mmol/L (137-145)
--- NOTE | 2018-07-20 09:59 | PDOC TRANSFER SUMMARY ---
General - Admit/Disc Date/PCP Admission Date/Primary Care Provider: 07/14/18 18:07 Discharge Date: 07/20/18 - Discharge Diagnosis (1) Subcapital fracture of neck of left femur Is this a current diagnosis for this admission?: Yes Summary: 07/17/18: This was repaired by Dr. Gunner Sin with a left hip hemiarthroplasty on 2017. She has thus far had an uncomplicated postoperative course. 07/18/18: No significant clinical changes for this problem. 07/19/18: Sofy is doing well postoperatively and is ready for discharge from a surgical standpoint this will be accomplished tomorrow when she will go to [facility] where she has been accepted and given a bed offer. (2) CAD (coronary artery disease) Is this a current diagnosis for this admission?: Yes Summary: 07/17/18: Patient's coronary artery disease has been stable throughout her hospitalization and she has been continued on her current prehospitalization regiment throughout her hospital course. 07/18/18: No significant clinical changes for this problem. (3) Diabetes mellitus type 2 in nonobese Is this a current diagnosis for this admission?: Yes Summary: 07/17/18: Her hemoglobin A1c was 7.2 suggesting reasonably good control. She was therefore maintained on her prehospital therapeutic regimen and a diabetic diet throughout her postoperative course when she was allowed to resume oral intake. 07/20/18: Sofy had a short episode of hypoglycemia with her sugar down to 54 last evening. The nurse on the prior day had held her Levemir because her blood sugar was in the 90s. She was then covered with sliding scale insulin throughout the day and tolerated it very well except for the 4 units that she was given last evening. Due to her relative hypoglycemia on Levemir and sliding scale, the sliding scale will be discontinued and her Levemir dose will be reduced to 0.3 units/kg/day (16 units). Further adjustments in her Levemir dose may be required during her post hospital course. (4) Personal history of cerebrovascular accident with current residual effects Is this a current diagnosis for this admission?: Yes Summary: 07/17/18: Sofy has a history of seizures following her cerebrovascular accident. She was being maintained on Keppra prior to her hospitalization and that has been continued throughout her hospitalization without incident or consequence. 07/18/18: No significant clinical changes for this problem. - Additional Information Resuscitation Status: Full Code Discharge Diet: Cardiac, Diabetic Discharge Activity: Other - Activity per rehabilitation orders issued by Dr. Sin Prescriptions: Hydrocodone/Acetaminophen [Struthers 5-325 mg Tablet] 1 tab PO Q6HP PRN 5 Days #10 tablet PRN Reason: Insulin Detemir [Levemir Flextouch] 16 unit SQ QAM 28 Days #1 insuln.pen Home Medications: Levetiracetam [Keppra 500 mg Tablet] 500 mg PO Q12 07/14/18 Mirtazapine 15 mg PO QHS 07/14/18 Olmesartan/Hydrochlorothiazide [Olmesartan-Hctz 40-25 mg Tab] 1 each PO DAILY Apixaban [Eliquis 2.5 mg Tablet] 2.5 mg PO BID 07/15/18 Acetaminophen [Tylenol 325 mg Tablet] 650 mg PO Q4HP PRN tablet 07/19/18 Amlodipine Besylate [Norvasc 10 mg Tablet] 10 mg PO DAILY tablet 07/19/18 Aspirin [Aspirin 81 mg Chewable Tablet] 81 mg PO DAILY tab.chew 07/19/18 Atorvastatin Calcium [Lipitor 20 mg Tablet] 20 mg PO QHS tablet 07/19/18 Hydrocodone/Acetaminophen [Struthers 5-325 mg Tablet] 1 tab PO Q6HP PRN 5 Days #10 tablet 07/19/18 Insulin Detemir [Levemir Flextouch] 16 unit SQ QAM 28 Days #1 insuln.pen History of Present Illness Admission Date/PCP: 07/14/18 18:07 History of Present Illness: SOFY BRYANT is a 78 year old female, visiting from [place], who presented to the emergency room where an x-ray revealed she had an femoral neck fracture of her left hip. According to her daughter the patient got up to use the bathroom became entangled in her blanket and fell to the floor. She was found with the blanket wrapped around her feet she was complaining of pain in her left hip. Orthopedic surgery was contacted and requested hospitalist admit the patient and consult them as she had a complicated medical history with coronary artery disease with a prior myocardial infarction in 2012. She underwent bypass at that time. She is followed closely by her thermostat machine tender in [place]. In 2013 she was diagnosed with lung cancer and had a lobe resection on the right followed by chemotherapy. She has been disease free ever since. In September 2017 patient had a CVA and was found to have a left carotid stenosis. She apparently had old strokes identified at that time and underwent an endarterectomy in November 2017. In September she was also noted to have a brief episode of paroxysmal atrial fibrillation. She was started on Eliquis and had been on it for over 6 months. In May her thermostat machine tender did a shelter monitor found no episodes of paroxysms of atrial fibrillation and discontinued the Eliquis and placed her on aspirin 81 mg. Patient suffers from hypertension diabetes hyperlipidemia she did have a seizure in September 2017 which they felt was secondary to her stroke she has been on Keppra since and has had no more reported seizures. She has not had any chest pain or cardiac complaints either prior to or after the fall. Her hemoglobin is 10.7 her white count is elevated at 15 other laboratory studies are pending at the time of this dictation. Patient's EKG shows a sinus rhythm with nonspecific T wave abnormalities in the lateral precordial and limb leads there is however no prior for comparison. Hospital Course Hospital Course: Patient was admitted to a medical monitored bed and underwent Left hip hemiarthroplasty on 07/16/18. 07/17/18: Sofy states that she is feeling well today. She does not remember that there was a fracture of her left hip or that it was repaired yesterday. She is very pleasant but very very confused and cannot contribute substantial historical or detailed input into her medical history. She denies having pain and this is verified by her nurse. She will begin physical therapy and have her Yoon catheter removed today and discharge planning is working on a post hospital skilled facility for her continued recovery. 07/18/18: Sofy is feeling well again today she has been working with physical therapy and has been standing with a walker and putting some light weight on her left foot. She is having very minimal pain and has not required pain medication. Her Yoon catheter has been removed and she has been passing urine without difficulty. She continues to enjoy her diet and has not experienced nausea or vomiting. She will be reevaluated by acute rehab for possible admission there within 24-48 hours. 07/19/18: Sofy again is smiling and states she feels very well. She continues to make progress with physical therapy initiating weightbearing on her left lower extremity. She has been eating her diet well and has not had any nausea or vomiting. She does not complain of any pain in her chest abdomen or even in her left hip. She was reevaluated by rehab who felt that she would be most appropriately placed in a long term facility due to her mild dementia which would likely interfere with intensive rehabilitation therapy. This is discussed with the patient and her daughter and it will be perfectly happy to go to [facility] for Sofy's rehab. Physical Exam Vital Signs: Temp Pulse Resp BP Pulse Ox 98.4 F 59 L 20 117/59 L 99 07/20/18 03:23 07/20/18 07:00 07/20/18 03:23 07/20/18 03:23 07/20/18 03:23 Intake & Output 07/18/18 07/19/18 07/20/18 23:59 23:59 23:59 Intake Total 532 1590 710 Output Total 500 300 Balance 32 1590 410 Weight 57.4 kg 54.1 kg 54.3 kg General appearance: PRESENT: no acute distress, cooperative, well-developed, well-nourished Head exam: PRESENT: atraumatic, normocephalic Respiratory exam: PRESENT: symmetrical, unlabored Cardiovascular exam: PRESENT: RRR. ABSENT: clicks, gallop, rubs Vascular exam: PRESENT: normal capillary refill. ABSENT: pallor Neurological exam: PRESENT: alert, oriented to person. ABSENT: oriented to place, oriented to time, oriented to situation Psychiatric exam: PRESENT: appropriate affect, normal mood, other - Significant short-term memory deficits and mild to moderate dementia Skin exam: ABSENT: jaundice, rash, urticaria Results Laboratory Results: 07/19/18 09:43 07/19/18 09:43 07/19/18 07/19/18 09:43 09:43 WBC 11.2 H RBC 4.07 Hgb 12.1 Hct 35.9 L MCV 88 MCH 29.8 MCHC 33.8 RDW 15.9 H Plt Count 182 Sodium 133.1 L Potassium 4.3 Chloride 93 L Carbon Dioxide 29 Anion Gap 11 BUN 23 H Creatinine 1.16 Est GFR ( Amer) 55 L Est GFR (Non-Af Amer) 45 L Glucose 97 Calcium 8.8 Magnesium 2.0 07/14/18 07/15/18 07/15/18 21:45 02:25 02:25 Creatine Kinase 108 CK-MB (CK-2) Troponin I 0.076 0.096 07/15/18 07/15/18 07/15/18 02:25 05:59 13:35 Creatine Kinase 145 H CK-MB (CK-2) 1.39 Troponin I Cancelled 0.097 07/15/18 07/15/18 07/15/18 13:35 17:15 17:15 Creatine Kinase 110 CK-MB (CK-2) 1.04 0.65 Troponin I 0.096 0.105 Impressions: Hip X-Ray 07/14/18 16:09 IMPRESSION: Left femoral neck fracture with approximately 2.4 cm of impaction and 1 cm lateral displacement. Chest X-Ray 07/14/18 17:07 IMPRESSION: No pneumothorax. Small pleural effusion versus Chronic scarring in the right lung base. Emphysema and chronic interstitial changes. No consolidation. Pelvis X-Ray 07/16/18 00:00 IMPRESSION: Left hip arthroplasty. Refer to operative note for further information. Transfer Plan - Disposition Transfer Plan: Discharge to [facility] in [facility] - Time Spent with Patient Time spent with patient: Greater than 30 Minutes Qualifiers - * PATIENT BEING DISCHARGED WITH ANY OF THE FOLLOWING DIAGNOSIS: No Plan Discharge Plan: Discharge to [facility] in improved and stable condition Time Spent: Greater than 30 Minutes
[2018-07-20 15:58] VITALS: BP 128/43
== END 2018-07-20 18:19 | DRG 470 ==
LOC: ER 14:09 → EH 18:07 → 3W 21:18
PROVIDERS: ADMIT Internal Medicine; ATTEND Internal Medicine
PROC: 30233N1 Transfusion of Nonautologous Red Blood Cells into Peripheral Vein, Percutaneous Approach (ICD-10-PCS; 2018-07-16)
PROC: 0SRS0JA Replacement of Left Hip Joint, Femoral Surface with Synthetic Substitute, Uncemented, Open Approach (ICD-10-PCS; principal; 2018-07-16 12:15)
DX: S72.012A Unspecified intracapsular fracture of left femur, initial encounter for closed fracture (principal); I97.191 Other postprocedural cardiac functional disturbances following other surgery; D62 Acute posthemorrhagic anemia; I44.1 Atrioventricular block, second degree; I25.10 Atherosclerotic heart disease of native coronary artery without angina pectoris; I48.0 Paroxysmal atrial fibrillation; E78.5 Hyperlipidemia, unspecified; I10 Essential (primary) hypertension; E11.8 Type 2 diabetes mellitus with unspecified complications; G40.909 Epilepsy, unspecified, not intractable, without status epilepticus; I25.2 Old myocardial infarction; W18.39XA Other fall on same level, initial encounter; Y93.89 Activity, other specified; Y92.098 Other place in other non-institutional residence as the place of occurrence of the external cause; Z95.1 Presence of aortocoronary bypass graft; Z85.118 Personal history of other malignant neoplasm of bronchus and lung; Z90.2 Acquired absence of lung [part of]; Z79.01 Long term (current) use of anticoagulants; Z79.82 Long term (current) use of aspirin; Z79.4 Long term (current) use of insulin; Z79.899 Other long term (current) drug therapy; Z86.73 Personal history of transient ischemic attack (TIA), and cerebral infarction without residual deficits
CPT/HCPCS: 01210; 36415; 36430; 71045; 72170; 80048; 80053; 80061; 81001; 82550; 82553; 82962; 83036; 83690; 83735; 84100; 84443; 84484; 85025; 85027; 85610; 85730; 86850; 86900; 86901; 86920; 87040; 87086; 88304; 88311; 90686; 93005; 93010; 93306; 99285; C1776; C9290; G8978-GP; G8979-GP; G8987-GO; G8988-GO; J0360; J1100; J1644; J1815; J2250; J2270; J2405; J2704; J3010; J3370; J3475; J3480; J3490; J7060; J7120; J7620; P9016